=== PATIENT | male | born 1980 | race Two or more races ===

== ENCOUNTER 2017-10-05 15:15 | Emergency (ER) | payer MEDICARE, OTHER ==
[~2017-10-05] VITALS: Ht 157.5 cm; Wt 56.7 kg
[2017-10-05 15:24] VITALS: BP 109/70
== END 2017-10-05 17:09 | disposition home or self-care (01) ==
LOC: ER 15:17
DX: S01.112A Laceration without foreign body of left eyelid and periocular area, initial encounter (principal); F17.210 Nicotine dependence, cigarettes, uncomplicated; W01.0XXA Fall on same level from slipping, tripping and stumbling without subsequent striking against object, initial encounter; Y93.89 Activity, other specified; Y92.090 Kitchen in other non-institutional residence as the place of occurrence of the external cause; Y99.8 Other external cause status
CPT/HCPCS: 12011

== ENCOUNTER 2017-10-15 16:44 | Emergency (ER) | payer MEDICARE, OTHER ==
[~2017-10-15] VITALS: Ht 167.6 cm; Wt 53.5 kg
== END 2017-10-15 18:14 | disposition home or self-care (01) ==
LOC: ER 16:49
DX: S01.112D Laceration without foreign body of left eyelid and periocular area, subsequent encounter (principal); X58.XXXD Exposure to other specified factors, subsequent encounter; Z48.02 Encounter for removal of sutures; Z87.891 Personal history of nicotine dependence

== ENCOUNTER 2017-11-07 16:16 | Emergency (ER) | payer MEDICARE, OTHER ==
[~2017-11-07] VITALS: Ht 157.5 cm; Wt 56.7 kg
[2017-11-07 16:24] VITALS: BP 122/74
[2017-11-08] MEDS ORDERED: DOPamine 1600MCG/ML D5W 250 ML IV ONE (13:10)
== END 2017-11-07 21:12 | disposition home or self-care (01) ==
LOC: ER 16:23
DX: M70.32 Other bursitis of elbow, left elbow (principal); Z87.891 Personal history of nicotine dependence

== ENCOUNTER 2019-05-07 09:10 | Inpatient (IN) | payer MEDICARE, OTHER ==
[~2019-05-07] VITALS: Ht 157.5 cm; Wt 60.6 kg
[2019-05-07] MEDS ORDERED: SODIUM CHLORIDE 0.9% 1,000 ML IV ONE ×2 (09:58)
[2019-05-07] MEDS ORDERED: PIPERACILLIN-TAZOB 3.375GM 100 ML IV ONE (10:00)
[2019-05-07] MEDS ORDERED: IOHEXOL 300 MG/ML 100ML BOTTLE IJ ONE (10:31)
[2019-05-07 10:38] LABS: Basophils # (auto) 0 uL; Basophils % (auto) 0.5 % (0.0-2.0); Eosinophils # (auto) 0.4 uL; Eosinophils % (auto) 3.7 % (0.0-7.0); Hematocrit 39.6 % (41.0-53.0); Hemoglobin 13.9 g/dL (13.5-17.5); Lymphocytes # (auto) 0.7 uL; Lymphocytes % (auto) 7.8 % (10.0-50.0); Mean Corpuscular Hgb Conc. 35.1 g/dL (32.0-36.0); Monocytes # (auto) 1.7 uL; Monocytes % (auto) 17.2 % (0.0-12.0); Neutrophils # (auto) 6.8 uL; Neutrophils % (auto) 70.8 % (37.0-80.0); Platelet Count (auto) 148 10^3/uL (140-450); Red Blood Cells 4.21 10^6/uL (4.5-5.90); Red Cell Distribution Width 12.7 % (11.8-14.3); White Blood Cell 9.6 10^3/uL (4.4-10.8)
[2019-05-07 10:58] LABS: Albumin 2.9 g/dL (3.4-5.0); Calcium 8.6 mg/dL (8.5-10.1); Potassium 3.7 mmol/L (3.5-5.1)
[2019-05-07 11:02] LABS: BUN/Creatinine Ratio 25.6; Bilirubin, Total 0.6 mg/dL (0.2-1.0); Total Protein 7.3 g/dL (6.4-8.2)
[2019-05-07 11:30] LABS: INR 0.95 (0.9-1.15); Partial Thromboplastin Time 27.4 sec (23.64-32.05)
[2019-05-07 12:11] LABS: Urine WBC None Seen /hpf (0 - 3)
[2019-05-07 12:44] LABS: Urine Bacteria NONE SEEN /hpf (None Seen); Urine Blood Negative /uL (Negative)
[2019-05-07 12:58] LABS: Urine Specific Gravity > 1.050 (1.001-1.035)
[2019-05-07] MEDS ORDERED: VANCOMYCIN PER PHARMACY 0 MG IV SCH ×2 (14:00→14:15)
[2019-05-07] MEDS ORDERED: VANCOMYCIN 1GM/250ML 250 ML IV ONE (14:00)
[2019-05-07] MEDS ORDERED: VANCOMYCIN 1GM/250ML 250 ML IV SCH (15:00)
[2019-05-07] MEDS: SODIUM CHLORIDE 0.9% 1,000 ML IV SCH (15:13)
[2019-05-07] MEDS ORDERED: KETOROLAC TROMETH 60MG/2ML VIAL IV PRN (15:15)
[2019-05-07] MEDS ORDERED: PROMETHAZINE HCL 25 MG/ML 1ML IV PRN (15:15)
[2019-05-07] MEDS ORDERED: KETOROLAC TROMETH 30 MG/ML 1ML VIAL IV PRN (15:15)
[2019-05-07] MEDS ORDERED: traMADol HCL 50 MG TAB PO PRN (15:15)
[2019-05-07] MEDS ORDERED: TEMAZEPAM 15 MG CAP PO PRN (15:15)
[2019-05-07] MEDS ORDERED: ACETAMINOPHEN 500 MG TAB PO PRN (15:15)
[2019-05-07] MEDS ORDERED: LACTULOSE 20Gm/30ML SOLN PO PRN (15:15)
[2019-05-07] MEDS: PIPERACILLIN-TAZOB 3.375GM 100 ML IV SCH ×2 (18:32→23:38)
[2019-05-07 19:35] VITALS: BP 123/97
[2019-05-07 19:40] VITALS: BP 99/64
[2019-05-07 22:00] VITALS: BP 99/64
[2019-05-07] MEDS: FAMOTIDINE 20 MG TAB PO SCH (22:36)
[2019-05-08] MEDS ORDERED: DONE10TA40 PO (01:56)
[2019-05-08] MEDS ORDERED: RISP4TAB53 PO ×2 (01:56)
[2019-05-08] MEDS ORDERED: DEUT12TA PO (01:56)
[2019-05-08] MEDS ORDERED: CHOL20007 PO (01:56)
[2019-05-08] MEDS ORDERED: TRAZ50TA2 PO (01:56)
[2019-05-08] MEDS ORDERED: TEMA15CA91 PO (01:56)
[2019-05-08] MEDS ORDERED: HYDRX10T PO (01:56)
[2019-05-08] MEDS ORDERED: LEVO50TA7 PO (01:56)
[2019-05-08] MEDS ORDERED: LEVE100012 PO (01:56)
[2019-05-08] MEDS ORDERED: TRIH5TAB2 PO (01:56)
[2019-05-08] MEDS ORDERED: IBUP800T24 PO (01:56)
[2019-05-08] MEDS ORDERED: QUET400T12 PO (01:56)
[2019-05-08] MEDS ORDERED: MILK175T PO (01:56)
[2019-05-08] MEDS ORDERED: RANI-226 PO (01:56)
[2019-05-08] MEDS: SODIUM CHLORIDE 0.9% 1,000 ML IV SCH ×3 (04:06→21:01)
[2019-05-08] MEDS: VANCOMYCIN 750 MG in D5W 5% 250 ML IV SCH ×2 (04:06→16:13)
[2019-05-08 05:56] VITALS: BP 97/48
[2019-05-08] MEDS: PIPERACILLIN-TAZOB 3.375GM 100 ML IV SCH (06:26)
[2019-05-08 08:56] VITALS: BP 104/56
[2019-05-08] MEDS: FAMOTIDINE 20 MG TAB PO SCH ×2 (10:34→23:27)
[2019-05-08 10:47] LABS: Basophils # (auto) 0.1 uL; Basophils % (auto) 0.7 % (0.0-2.0); Eosinophils # (auto) 0.5 uL; Eosinophils % (auto) 5.8 % (0.0-7.0); Hemoglobin 13.8 g/dL (13.5-17.5); Lymphocytes # (auto) 1.2 uL; Lymphocytes % (auto) 13.5 % (10.0-50.0); Mean Corpuscular Hemoglobin 32.6 pg (28.0-32.0); Mean Corpuscular Hgb Conc. 34.5 g/dL (32.0-36.0); Mean Corpuscular Volume 94.5 fL (80.0-100.0); Monocytes # (auto) 1.4 uL; Monocytes % (auto) 15.3 % (0.0-12.0); Neutrophils # (auto) 5.8 uL; Neutrophils % (auto) 64.7 % (37.0-80.0); Nucleated Red Blood Cells % 0.2 %; Platelet Count (auto) 186 10^3/uL (140-450); Red Blood Cells 4.23 10^6/uL (4.5-5.90); Red Cell Distribution Width 12.5 % (11.8-14.3)
[2019-05-08 11:01] LABS: Albumin 2.9 g/dL (3.4-5.0); BUN/Creatinine Ratio 15.7; Calcium 8.6 mg/dL (8.5-10.1); Potassium 4.7 mmol/L (3.5-5.1)
[2019-05-08 11:03] LABS: Bilirubin, Total 0.6 mg/dL (0.2-1.0); Total Protein 7.2 g/dL (6.4-8.2)
[2019-05-08 13:00] VITALS: BP 104/73
[2019-05-08 16:41] VITALS: BP 115/54
[2019-05-08 21:34] VITALS: BP 103/65
[2019-05-08] MEDS: TRIHEXYPHENIDYL 5 MG PO SCH (22:00)
[2019-05-08] MEDS: QUEtiapine FUMARATE 100 MG TAB PO SCH (23:25)
[2019-05-08] MEDS: risperiDONE 1 MG TAB PO SCH (23:26)
[2019-05-08] MEDS: DONEPEZIL HYDROCHLORIDE 5 MG TAB PO SCH (23:27)
[2019-05-08] MEDS: LEVETIRACETAM 500 MG TAB PO SCH (23:27)
[2019-05-09 03:37] VITALS: BP 126/68
[2019-05-09] MEDS: VANCOMYCIN 750 MG in D5W 5% 250 ML IV SCH (04:42)
[2019-05-09] MEDS: SODIUM CHLORIDE 0.9% 1,000 ML IV SCH ×2 (07:01→09:59)
[2019-05-09] MEDS: LEVOTHYROXINE SODIUM 50 MCG TAB PO SCH (07:20)
[2019-05-09 09:00] VITALS: BP 106/70
[2019-05-09] MEDS: LEVETIRACETAM 500 MG TAB PO SCH ×2 (09:41→22:22)
[2019-05-09] MEDS: cefTRIAXone 1GM/50ML D5W 50 ML IV SCH (09:41)
[2019-05-09] MEDS: FAMOTIDINE 20 MG TAB PO SCH ×2 (09:42→22:22)
[2019-05-09] MEDS: risperiDONE 1 MG TAB PO SCH ×2 (09:42→22:22)
[2019-05-09] MEDS: QUEtiapine FUMARATE 100 MG TAB PO SCH ×2 (09:42→22:22)
[2019-05-09] MEDS: TRIHEXYPHENIDYL 5 MG PO SCH ×2 (09:42→22:00)
[2019-05-09 10:29] LABS: Basophils # (auto) 0.1 uL; Basophils % (auto) 1.1 % (0.0-2.0); Eosinophils # (auto) 0.6 uL; Eosinophils % (auto) 9.2 % (0.0-7.0); Hematocrit 38.5 % (41.0-53.0); Hemoglobin 13.6 g/dL (13.5-17.5); Lymphocytes # (auto) 1.2 uL; Lymphocytes % (auto) 18.4 % (10.0-50.0); Mean Corpuscular Hemoglobin 33.1 pg (28.0-32.0); Mean Corpuscular Hgb Conc. 35.5 g/dL (32.0-36.0); Mean Corpuscular Volume 93.2 fL (80.0-100.0); Monocytes # (auto) 0.9 uL; Monocytes % (auto) 13.2 % (0.0-12.0); Neutrophils # (auto) 3.8 uL; Neutrophils % (auto) 58.1 % (37.0-80.0); Nucleated Red Blood Cells % 0.1 %; Platelet Count (auto) 205 10^3/uL (140-450); Red Blood Cells 4.13 10^6/uL (4.5-5.90); Red Cell Distribution Width 12.5 % (11.8-14.3); White Blood Cell 6.6 10^3/uL (4.4-10.8)
[2019-05-09 10:47] LABS: Albumin 2.8 g/dL (3.4-5.0); BUN/Creatinine Ratio 19.7; Calcium 8.5 mg/dL (8.5-10.1); Potassium 3.9 mmol/L (3.5-5.1)
[2019-05-09 10:50] LABS: Bilirubin, Total 0.4 mg/dL (0.2-1.0); Total Protein 7.1 g/dL (6.4-8.2)
[2019-05-09 13:00] VITALS: BP 114/44
[2019-05-09] MEDS: VANCOMYCIN 1GM/250ML 250 ML IV SCH ×2 (14:26→22:03)
[2019-05-09 17:00] VITALS: BP 107/55
[2019-05-09 22:00] VITALS: BP 147/66
[2019-05-09] MEDS: ASCORBIC ACID 500 MG TAB PO SCH (22:22)
[2019-05-09] MEDS: DONEPEZIL HYDROCHLORIDE 5 MG TAB PO SCH (22:22)
[2019-05-10] MEDS: SODIUM CHLORIDE 0.9% 1,000 ML IV SCH ×2 (03:01→14:29)
[2019-05-10 04:50] VITALS: BP 101/55
[2019-05-10] MEDS: VANCOMYCIN 1GM/250ML 250 ML IV SCH ×2 (06:05→14:49)
[2019-05-10] MEDS: LEVOTHYROXINE SODIUM 50 MCG TAB PO SCH (06:25)
[2019-05-10 08:00] VITALS: BP 102/60
[2019-05-10] MEDS: cefTRIAXone 1GM/50ML D5W 50 ML IV SCH (08:51)
[2019-05-10 09:28] LABS: Basophils # (auto) 0.1 uL; Basophils % (auto) 0.6 % (0.0-2.0); Eosinophils # (auto) 0.5 uL; Eosinophils % (auto) 5.4 % (0.0-7.0); Hematocrit 39.8 % (41.0-53.0); Hemoglobin 13.7 g/dL (13.5-17.5); Lymphocytes # (auto) 1.1 uL; Lymphocytes % (auto) 11.4 % (10.0-50.0); Mean Corpuscular Hemoglobin 32.6 pg (28.0-32.0); Mean Corpuscular Hgb Conc. 34.5 g/dL (32.0-36.0); Mean Corpuscular Volume 94.5 fL (80.0-100.0); Monocytes # (auto) 0.7 uL; Monocytes % (auto) 6.9 % (0.0-12.0); Neutrophils # (auto) 7.2 uL; Neutrophils % (auto) 75.7 % (37.0-80.0); Platelet Count (auto) 226 10^3/uL (140-450); Red Blood Cells 4.21 10^6/uL (4.5-5.90); Red Cell Distribution Width 12.7 % (11.8-14.3); White Blood Cell 9.5 10^3/uL (4.4-10.8)
[2019-05-10] MEDS: TRIHEXYPHENIDYL 5 MG PO SCH ×2 (10:00→22:00)
[2019-05-10 10:15] LABS: BUN/Creatinine Ratio 19.4; Calcium 8.5 mg/dL (8.5-10.1); Potassium 3.7 mmol/L (3.5-5.1)
[2019-05-10] MEDS: risperiDONE 1 MG TAB PO SCH ×2 (10:38→21:22)
[2019-05-10] MEDS: FAMOTIDINE 20 MG TAB PO SCH ×2 (10:38→21:22)
[2019-05-10] MEDS: ASCORBIC ACID 500 MG TAB PO SCH ×2 (10:38→21:22)
[2019-05-10] MEDS: LEVETIRACETAM 500 MG TAB PO SCH ×2 (10:38→21:22)
[2019-05-10] MEDS: QUEtiapine FUMARATE 100 MG TAB PO SCH ×2 (10:38→21:23)
[2019-05-10 11:33] VITALS: BP 104/64
[2019-05-10 14:00] VITALS: BP 112/53
[2019-05-10] MEDS: DONEPEZIL HYDROCHLORIDE 5 MG TAB PO SCH (21:22)
[2019-05-10 22:00] VITALS: BP 114/76
[2019-05-11] MEDS ORDERED: VANCOMYCIN 1GM/250ML 250 ML IV SCH (01:00)
[2019-05-11] MEDS: SODIUM CHLORIDE 0.9% 1,000 ML IV SCH (01:22)
[2019-05-11 05:00] VITALS: BP 108/62
[2019-05-11] MEDS: LEVOTHYROXINE SODIUM 50 MCG TAB PO SCH (06:43)
[2019-05-11 08:00] VITALS: BP 105/56
[2019-05-11] MEDS: cefTRIAXone 1GM/50ML D5W 50 ML IV SCH (09:30)
[2019-05-11] MEDS: ASCORBIC ACID 500 MG TAB PO SCH ×2 (09:32→21:59)
[2019-05-11] MEDS: risperiDONE 1 MG TAB PO SCH ×2 (09:32→21:59)
[2019-05-11] MEDS: LEVETIRACETAM 500 MG TAB PO SCH ×2 (09:32→21:59)
[2019-05-11] MEDS: TRIHEXYPHENIDYL 5 MG PO SCH ×2 (09:32→22:00)
[2019-05-11] MEDS: FAMOTIDINE 20 MG TAB PO SCH ×2 (09:33→21:59)
[2019-05-11] MEDS: QUEtiapine FUMARATE 100 MG TAB PO SCH ×2 (09:33→21:59)
[2019-05-11] MEDS ORDERED: SULFAMETHOX W/TRIMETH(800/160MG) DS TAB PO ONE (11:30)
[2019-05-11 13:00] VITALS: BP 97/55
[2019-05-11 14:07] VITALS: BP 105/56
[2019-05-11 17:00] VITALS: BP 107/74
[2019-05-11 21:00] VITALS: BP 112/59
[2019-05-11] MEDS: DONEPEZIL HYDROCHLORIDE 5 MG TAB PO SCH (21:58)
[2019-05-11] MEDS: SULFAMETHOX W/TRIMETH(800/160MG) DS TAB PO SCH (21:59)
[2019-05-12] MEDS: LEVOTHYROXINE SODIUM 50 MCG TAB PO SCH (06:17)
[2019-05-12 06:29] VITALS: BP 104/51
[2019-05-12] MEDS: cefTRIAXone 1GM/50ML D5W 50 ML IV SCH (08:57)
[2019-05-12 09:00] VITALS: BP 91/47
[2019-05-12] MEDS: TRIHEXYPHENIDYL 5 MG PO SCH (10:00)
[2019-05-12] MEDS: FAMOTIDINE 20 MG TAB PO SCH (11:02)
[2019-05-12] MEDS: ASCORBIC ACID 500 MG TAB PO SCH (11:02)
[2019-05-12] MEDS: SULFAMETHOX W/TRIMETH(800/160MG) DS TAB PO SCH (11:02)
[2019-05-12] MEDS: QUEtiapine FUMARATE 100 MG TAB PO SCH (11:02)
[2019-05-12] MEDS: LEVETIRACETAM 500 MG TAB PO SCH (11:03)
[2019-05-12] MEDS: risperiDONE 1 MG TAB PO SCH (11:03)
[2019-05-12 13:00] VITALS: BP 104/63
[2019-05-12 17:56] VITALS: BP 106/60
== END 2019-05-12 20:25 | disposition home health service (06) | DRG 872 ==
LOC: ER 09:10 → OVERFLOW 13:25 → CENTRAL 19:30
PROVIDERS: ADMIT Internal Medicine; ATTEND Internal Medicine
DX: A41.9 Sepsis, unspecified organism (principal); L03.313 Cellulitis of chest wall; G10 Huntington's disease; L02.31 Cutaneous abscess of buttock; L72.3 Sebaceous cyst; F20.9 Schizophrenia, unspecified; E03.9 Hypothyroidism, unspecified; B95.62 Methicillin resistant Staphylococcus aureus infection as the cause of diseases classified elsewhere
CPT/HCPCS: 36415; 71045; 71260; 80048; 80053; 80202; 81001; 83605; 84443; 85025; 85610; 85730; 87040; 87077; 87081; 87186; 87205; 96365; 96366; 96368; A4565; G0378; J0696; J2543; J7060

== ENCOUNTER 2019-08-17 16:49 | Emergency (ER) | payer MEDICARE, OTHER ==
[~2019-08-17] VITALS: Ht 177.8 cm; Wt 72.6 kg
[~2019-08-17 16:49] MED LIST: CHOL20007 PO; DEUT12TA PO; DONE10TA40 PO; HYDRX10T PO; IBUP800T24 PO; LEVE100012 PO; LEVO50TA7 PO; MILK175T PO; QUET400T12 PO; RANI-226 PO; RISP4TAB53 PO; TEMA15CA91 PO; TRAZ50TA2 PO; TRIH5TAB3 PO
[2019-08-17 17:06] VITALS: BP 117/78
[2019-08-17] MEDS ORDERED: ACETAMINOPHEN 325 MG TAB PO ONE (17:15)
[2019-08-17 17:34] LABS: Basophils # (auto) 0 uL; Basophils % (auto) 0.4 % (0.0-2.0); Eosinophils # (auto) 0.2 uL; Eosinophils % (auto) 1.9 % (0.0-7.0); Hemoglobin 15.1 g/dL (13.5-17.5); Lymphocytes # (auto) 1.3 uL; Lymphocytes % (auto) 15.5 % (10.0-50.0); Mean Corpuscular Hemoglobin 33.2 pg (28.0-32.0); Mean Corpuscular Hgb Conc. 34.3 g/dL (32.0-36.0); Mean Corpuscular Volume 96.8 fL (80.0-100.0); Monocytes # (auto) 1.1 uL; Monocytes % (auto) 13.9 % (0.0-12.0); Neutrophils # (auto) 5.6 uL; Neutrophils % (auto) 68.3 % (37.0-80.0); Nucleated Red Blood Cells % 0.1 %; Platelet Count (auto) 149 10^3/uL (140-450); Red Blood Cells 4.55 10^6/uL (4.5-5.90); Red Cell Distribution Width 13.1 % (11.8-14.3); White Blood Cell 8.3 10^3/uL (4.4-10.8)
[2019-08-17 17:50] LABS: Alanine Aminotransferase 66 U/L (16-61); Albumin 3.7 g/dL (3.4-5.0); Anion Gap 2 (5-15); Aspartate Aminotransferase 28 U/L (15-37); BUN/Creatinine Ratio 22.3; Blood Urea Nitrogen 25 mg/dL (7-18); Calcium 8.5 mg/dL (8.5-10.1); Carbon Dioxide 30 mmol/L (21-32); Chloride 107 mmol/L (98-107); GFR African American 95 mL/min; GFR Non-African American 78 mL/min; Glucose 105 mg/dL (74-106); Sodium 139 mmol/L (136-145)
[2019-08-17 17:52] LABS: Alkaline Phosphatase 87 U/L (45-117); Bilirubin, Total 0.4 mg/dL (0.2-1.0); Total Protein 7.8 g/dL (6.4-8.2)
== END 2019-08-17 20:55 | disposition left against medical advice (07) ==
LOC: ER 17:02 → MERGE 17:02 → ER 20:55
DX: M25.562 Pain in left knee (principal); Z53.21 Procedure and treatment not carried out due to patient leaving prior to being seen by health care provider
CPT/HCPCS: 36415; 73562; 80053; 85025

== ENCOUNTER 2020-01-19 19:18 | Emergency (ER) | payer MEDICARE, OTHER ==
[~2020-01-19] VITALS: Ht 170.2 cm; Wt 63.5 kg
[2020-01-19] MEDS ORDERED: LIDOCAINE W/ EPINEPHRINE 1% 20ML VIAL ID ONE (21:00)
[2020-01-19] MEDS ORDERED: LORazepam 2MG/ML-1ML VIAL IV ONE ×2 (21:15)
[2020-01-19 23:46] VITALS: BP 118/67
== END 2020-01-19 23:47 | disposition home or self-care (01) ==
LOC: ER 19:18 → EDBD 19:18 → ER 23:47
DX: S01.01XA Laceration without foreign body of scalp, initial encounter (principal); S06.0X0A Concussion without loss of consciousness, initial encounter; G10 Huntington's disease; Z79.899 Other long term (current) drug therapy; W18.31XA Fall on same level due to stepping on an object, initial encounter; Y93.89 Activity, other specified; Y92.89 Other specified places as the place of occurrence of the external cause; Y99.8 Other external cause status
CPT/HCPCS: 12002; 70450; 72125; 96374; 99285; J2060

== ENCOUNTER 2020-01-20 01:06 | Emergency (ER) | payer MEDICARE, OTHER ==
[~2020-01-20] VITALS: Ht 157.5 cm; Wt 68.0 kg
[2020-01-20 03:25] VITALS: BP 135/75
== END 2020-01-20 03:36 | disposition home or self-care (01) ==
LOC: ER 01:06
DX: S01.01XA Laceration without foreign body of scalp, initial encounter (principal); Z79.899 Other long term (current) drug therapy; W18.09XA Striking against other object with subsequent fall, initial encounter; Y93.89 Activity, other specified; Y92.098 Other place in other non-institutional residence as the place of occurrence of the external cause; Y99.8 Other external cause status
CPT/HCPCS: 12002; 70450

== ENCOUNTER 2020-03-18 08:41 | Emergency (ER) | payer MEDICARE, OTHER ==
[~2020-03-18] VITALS: Ht 157.5 cm; Wt 54.0 kg
[2020-03-18 08:53] VITALS: BP 110/56
== END 2020-03-18 09:45 | disposition home or self-care (01) ==
LOC: ER 08:41
DX: S01.112A Laceration without foreign body of left eyelid and periocular area, initial encounter (principal); W01.0XXA Fall on same level from slipping, tripping and stumbling without subsequent striking against object, initial encounter; Y93.01 Activity, walking, marching and hiking; Y92.89 Other specified places as the place of occurrence of the external cause; Y99.8 Other external cause status
CPT/HCPCS: 12011

== ENCOUNTER 2021-08-11 07:53 | Emergency (ER) | payer MEDICARE, OTHER ==
[~2021-08-11] VITALS: Ht 167.6 cm; Wt 59.0 kg
[~2021-08-11 07:53] MED LIST changes: -DONE10TA40 PO; +DONE1TAB88 PO; -IBUP800T24 PO; +IBUP800T27 PO; +TEMA15CA2 PO; -TEMA15CA91 PO
[2021-08-11 08:13] VITALS: BP 131/74
[2021-08-11] MEDS ORDERED: ACETAMINOPHEN 650 mg PER 20.3 mL UD PO ONE (08:45)
== END 2021-08-11 08:45 ==
LOC: EDBD 07:53 → ER 07:53 → EDUNIT# 07:53 → ER 08:45
DX: S01.01XA Laceration without foreign body of scalp, initial encounter (principal); S09.8XXA Other specified injuries of head, initial encounter; G10 Huntington's disease; Z86.19 Personal history of other infectious and parasitic diseases; W22.8XXA Striking against or struck by other objects, initial encounter; Y93.89 Activity, other specified; Y92.89 Other specified places as the place of occurrence of the external cause; Y99.8 Other external cause status
CPT/HCPCS: 12001

== ENCOUNTER 2021-11-15 22:49 | Emergency (ER) | payer MEDICARE, OTHER ==
[~2021-11-15] VITALS: Ht 165.1 cm; Wt 49.4 kg
[~2021-11-15 22:49] MED LIST changes: -QUET400T12 PO; +QUET400T13 PO
[2021-11-16 02:47] LABS: Basophils # (auto) 0 10 ^3/uL (0-0.2); Basophils % (auto) 0.5 % (0.0-2.0); Eosinophils # (auto) 0.3 10 ^3/uL (0-0.8); Eosinophils % (auto) 3.1 % (0.0-7.0); Hematocrit 42.7 % (41.0-53.0); Hemoglobin 14.7 g/dL (13.5-17.5); Lymphocytes # (auto) 1.3 10 ^3/uL (0.4-5.4); Lymphocytes % (auto) 15.8 % (10.0-50.0); Mean Corpuscular Hemoglobin 32.5 pg (28.0-32.0); Mean Corpuscular Hgb Conc. 34.3 g/dL (32.0-36.0); Mean Corpuscular Volume 94.9 fL (80.0-100.0); Monocytes % (auto) 12.1 % (0.0-12.0); Neutrophils # (auto) 5.7 10 ^3/uL (1.6-8.6); Neutrophils % (auto) 68.5 % (37.0-80.0); Nucleated Red Blood Cells % 0.1 %; Red Cell Distribution Width 12.6 % (11.8-14.3); White Blood Cell 8.3 10^3/uL (4.4-10.8)
[2021-11-16 03:06] LABS: Albumin 3.5 g/dL (3.4-5.0); BUN/Creatinine Ratio 26.6; Calcium 8.7 mg/dL (8.5-10.1); Potassium 3.9 mmol/L (3.5-5.1)
[2021-11-16 03:07] LABS: Bilirubin, Total 0.5 mg/dL (0.2-1.0); Total Protein 7.1 g/dL (6.4-8.2)
[2021-11-16] MEDS ORDERED: cefTRIAXone 1GM/50ML D5W 50 ML IV ONE (09:15)
[2021-11-16 10:03] VITALS: BP 110/65
== END 2021-11-16 10:09 | disposition home or self-care (01) ==
LOC: ER 22:49
DX: J18.9 Pneumonia, unspecified organism (principal); G10 Huntington's disease; Z20.822 Contact with and (suspected) exposure to COVID-19
CPT/HCPCS: 36415; 71045; 80053; 85025; 87426; 96365

== ENCOUNTER 2021-12-20 20:47 | Inpatient (IN) | payer MEDICARE, OTHER ==
[~2021-12-20] VITALS: Ht 160 cm; Wt 40.6 kg
[2021-12-20] MEDS ORDERED: IOHEXOL 350 MG/ML 100ML IJ ONE (22:04)
[2021-12-20 22:11] LABS: Basophils # (auto) 0 10 ^3/uL (0-0.2); Basophils % (auto) 0.4 % (0.0-2.0); Eosinophils # (auto) 0 10 ^3/uL (0-0.8); Eosinophils % (auto) 0.2 % (0.0-7.0); Hematocrit 45.1 % (41.0-53.0); Hemoglobin 15.5 g/dL (13.5-17.5); Lymphocytes # (auto) 1.4 10 ^3/uL (0.4-5.4); Lymphocytes % (auto) 16.5 % (10.0-50.0); Mean Corpuscular Hemoglobin 32.2 pg (28.0-32.0); Mean Corpuscular Hgb Conc. 34.5 g/dL (32.0-36.0); Mean Corpuscular Volume 93.4 fL (80.0-100.0); Monocytes # (auto) 0.6 10 ^3/uL (0-1.3); Monocytes % (auto) 6.6 % (0.0-12.0); Neutrophils # (auto) 6.6 10 ^3/uL (1.6-8.6); Neutrophils % (auto) 76.3 % (37.0-80.0); Nucleated Red Blood Cells % 0.2 %; Red Blood Cells 4.83 10^6/uL (4.5-5.90); Red Cell Distribution Width 12.8 % (11.8-14.3); White Blood Cell 8.6 10^3/uL (4.4-10.8)
[2021-12-20 22:24] LABS: Albumin 3.5 g/dL (3.4-5.0); Calcium 8.8 mg/dL (8.5-10.1); Magnesium 3.3 mg/dL (1.6-2.6); Potassium 3.7 mmol/L (3.5-5.1)
[2021-12-20 22:25] LABS: INR 1.02 (0.9-1.15); Partial Thromboplastin Time 23.5 sec (23.6-33.0)
[2021-12-20 22:54] LABS: BUN/Creatinine Ratio 26.4; Bilirubin, Total 0.2 mg/dL (0.2-1.0); Total Protein 7.2 g/dL (6.4-8.2)
[2021-12-21] MEDS ORDERED: SODIUM CHLORIDE 0.9% 1,000 ML IV ONE (00:15)
[2021-12-21] MEDS ORDERED: AZITHROMYCIN 500MG/ 250ML 250 ML IV ONE (00:15)
[2021-12-21] MEDS ORDERED: cefTRIAXone 1GM/50ML D5W 50 ML IV ONE (00:15)
[2021-12-21] MEDS ORDERED: ONDANSETRON HCL 4 MG/2 ML VIAL IV PRN (04:00)
[2021-12-21] MEDS ORDERED: ACETAMINOPHEN 325 MG TAB PO PRN (04:00)
[2021-12-21] MEDS ORDERED: MORPHINE SULFATE INJECTION 2 MG/ML SYRG IV PRN (04:00)
[2021-12-21] MEDS ORDERED: NITROGLYCERIN 0.4 MG SL TAB SL PRN (04:00)
[2021-12-21] MEDS ORDERED: TEMAZEPAM 15 MG CAP PO PRN (04:00)
[2021-12-21] MEDS: ALBUTEROL SULF 2.5 MG/0.5ML(0.5%) NEB SOLN NEB SCH ×3 (06:00→18:15)
[2021-12-21] MEDS: LEVOTHYROXINE SODIUM 50 MCG TAB PO SCH (07:10)
[2021-12-21] MEDS: cefTRIAXone 1GM/50ML D5W 50 ML IV SCH (09:35)
[2021-12-21] MEDS ORDERED: DexAMETHasone SOD PHOS 10MG/1ML VIAL INJ IV SCH (10:00)
[2021-12-21] MEDS ORDERED: levETIRAcetam 500 MG TAB PO SCH (10:00)
[2021-12-21] MEDS: ZINC SULFATE 220mg CAP or TAB PO SCH (10:51)
[2021-12-21] MEDS: risperiDONE 1 MG TAB PO SCH (10:51)
[2021-12-21] MEDS: MULTIPLE VITAMIN TAB PO SCH (10:51)
[2021-12-21] MEDS: ASCORBIC ACID 500 MG TAB PO SCH (10:52)
[2021-12-21] MEDS: ENOXAPARIN SOD 40 MG/0.4 ML SYRINGE SC SCH (10:52)
[2021-12-21] MEDS: AZITHROMYCIN 500MG/ 250ML 250 ML IV SCH (11:32)
[2021-12-21 12:32] LABS: Urine Bacteria NONE SEEN /hpf (None Seen); Urine Blood Negative /uL (Negative); Urine Specific Gravity 1.033 (1.001-1.035); Urine WBC 6 /hpf (0 - 3)
[2021-12-21 22:00] VITALS: BP 132/64
[2021-12-22] MEDS: ASCORBIC ACID 500 MG TAB PO SCH ×3 (00:34→22:00)
[2021-12-22] MEDS: traZODone HCL 50 MG TAB PO SCH ×2 (00:34→22:00)
[2021-12-22 05:00] VITALS: BP 126/78
[2021-12-22] MEDS: LEVOTHYROXINE SODIUM 50 MCG TAB PO SCH (05:57)
[2021-12-22 06:02] LABS: Basophils # (auto) 0 10 ^3/uL (0-0.2); Basophils % (auto) 0.1 % (0.0-2.0); Eosinophils # (auto) 0.6 10 ^3/uL (0-0.8); Eosinophils % (auto) 5.6 % (0.0-7.0); Hematocrit 43.1 % (41.0-53.0); Hemoglobin 15.1 g/dL (13.5-17.5); Lymphocytes # (auto) 1.5 10 ^3/uL (0.4-5.4); Lymphocytes % (auto) 14.7 % (10.0-50.0); Mean Corpuscular Hemoglobin 32.3 pg (28.0-32.0); Mean Corpuscular Hgb Conc. 34.9 g/dL (32.0-36.0); Mean Corpuscular Volume 92.5 fL (80.0-100.0); Monocytes # (auto) 0.9 10 ^3/uL (0-1.3); Neutrophils # (auto) 7.1 10 ^3/uL (1.6-8.6); Neutrophils % (auto) 70.6 % (37.0-80.0); Red Blood Cells 4.66 10^6/uL (4.5-5.90); Red Cell Distribution Width 13.1 % (11.8-14.3); White Blood Cell 10.1 10^3/uL (4.4-10.8)
[2021-12-22] MEDS: ALBUTEROL SULF 2.5 MG/0.5ML(0.5%) NEB SOLN NEB SCH ×3 (06:03→18:12)
[2021-12-22 06:38] LABS: Potassium 3.8 mmol/L (3.5-5.1)
[2021-12-22 06:48] LABS: Albumin 3.2 g/dL (3.4-5.0); BUN/Creatinine Ratio 27.2; Bilirubin, Total 0.8 mg/dL (0.2-1.0); Calcium 8.8 mg/dL (8.5-10.1); Total Protein 6.7 g/dL (6.4-8.2)
[2021-12-22 08:00] VITALS: BP 107/69
[2021-12-22 09:00] VITALS: BP 107/69
[2021-12-22] MEDS: cefTRIAXone 1GM/50ML D5W 50 ML IV SCH (10:01)
[2021-12-22] MEDS: MULTIPLE VITAMIN TAB PO SCH (10:02)
[2021-12-22] MEDS: ZINC SULFATE 220mg CAP or TAB PO SCH (10:02)
[2021-12-22] MEDS: risperiDONE 1 MG TAB PO SCH (10:02)
[2021-12-22] MEDS: AZITHROMYCIN 500MG/ 250ML 250 ML IV SCH (10:02)
[2021-12-22] MEDS: ENOXAPARIN SOD 40 MG/0.4 ML SYRINGE SC SCH (10:03)
[2021-12-22] MEDS ORDERED: FUROSEMIDE 20 MG/2 ML VIAL IV ONE (10:15)
[2021-12-22] MEDS ORDERED: levoFLOXacin 500MG 100 ML IV ONE (10:15)
[2021-12-22 13:00] VITALS: BP 113/64
[2021-12-22 17:00] VITALS: BP 117/73
[2021-12-22 20:30] VITALS: BP 107/69
[2021-12-23] MEDS: LEVOTHYROXINE SODIUM 50 MCG TAB PO SCH (06:38)
[2021-12-23] MEDS: IPRATROPIUM BROM 0.5 MG/2.5ML INH SOL NEB PRN ×3 (06:56→19:03)
[2021-12-23] MEDS: ALBUTEROL SULF 2.5 MG/0.5ML(0.5%) NEB SOLN NEB SCH ×3 (06:56→19:02)
[2021-12-23 07:30] VITALS: BP 113/64
[2021-12-23 07:36] LABS: Albumin 3.4 g/dL (3.4-5.0)
[2021-12-23 07:41] LABS: Bilirubin, Direct 0.2 mg/dL (0-0.2); Bilirubin, Total 0.9 mg/dL (0.2-1.0); Total Protein 7.7 g/dL (6.4-8.2)
[2021-12-23 09:00] VITALS: BP 115/75
[2021-12-23] MEDS: MULTIPLE VITAMIN TAB PO SCH ×2 (10:00→10:31)
[2021-12-23] MEDS: ZINC SULFATE 220mg CAP or TAB PO SCH (10:00)
[2021-12-23] MEDS: ASCORBIC ACID 500 MG TAB PO SCH ×2 (10:00→22:42)
[2021-12-23] MEDS: risperiDONE 1 MG TAB PO SCH ×2 (10:00→10:31)
[2021-12-23] MEDS: FUROSEMIDE 20 MG/2 ML VIAL IV SCH (10:30)
[2021-12-23] MEDS: levoFLOXacin 500MG 100 ML IV SCH (10:30)
[2021-12-23] MEDS: ENOXAPARIN SOD 40 MG/0.4 ML SYRINGE SC SCH (10:31)
[2021-12-23 13:00] VITALS: BP 116/88
[2021-12-23] MEDS: D5W/SOD CHLO 0.9% 1,000 ML IV SCH ×2 (14:06→22:41)
[2021-12-23 17:00] VITALS: BP 119/66
[2021-12-23 21:04] VITALS: BP 94/49
[2021-12-23 22:00] VITALS: BP 94/49
[2021-12-23] MEDS: traZODone HCL 50 MG TAB PO SCH (22:41)
[2021-12-24 05:03] VITALS: BP 130/76
[2021-12-24] MEDS: D5W/SOD CHLO 0.9% 1,000 ML IV SCH (06:13)
[2021-12-24] MEDS: LEVOTHYROXINE SODIUM 50 MCG TAB PO SCH ×2 (06:13→10:46)
[2021-12-24 06:18] LABS: Bilirubin, Direct 0.2 mg/dL (0-0.2)
[2021-12-24 06:20] LABS: Bilirubin, Total 0.5 mg/dL (0.2-1.0); Total Protein 6.7 g/dL (6.4-8.2)
[2021-12-24] MEDS: ALBUTEROL SULF 2.5 MG/0.5ML(0.5%) NEB SOLN NEB SCH ×2 (06:28→22:41)
[2021-12-24] MEDS: IPRATROPIUM BROM 0.5 MG/2.5ML INH SOL NEB PRN (06:28)
[2021-12-24 08:00] VITALS: BP 136/70
[2021-12-24 09:23] VITALS: BP 126/70
[2021-12-24] MEDS: ZINC SULFATE 220mg CAP or TAB PO SCH (10:00)
[2021-12-24] MEDS: ASCORBIC ACID 500 MG TAB PO SCH ×2 (10:46→22:30)
[2021-12-24] MEDS: risperiDONE 1 MG TAB PO SCH (10:47)
[2021-12-24] MEDS: MULTIPLE VITAMIN TAB PO SCH (10:47)
[2021-12-24] MEDS: ENOXAPARIN SOD 40 MG/0.4 ML SYRINGE SC SCH (10:48)
[2021-12-24] MEDS: FUROSEMIDE 20 MG/2 ML VIAL IV SCH (10:48)
[2021-12-24] MEDS: levoFLOXacin 500MG 100 ML IV SCH (10:49)
[2021-12-24 20:56] VITALS: BP 129/82
[2021-12-24] MEDS: traZODone HCL 50 MG TAB PO SCH (22:30)
[2021-12-25] MEDS: D5W/SOD CHLO 0.9% 1,000 ML IV SCH (03:09)
[2021-12-25 05:21] VITALS: BP 141/70
[2021-12-25] MEDS: ALBUTEROL SULF 2.5 MG/0.5ML(0.5%) NEB SOLN NEB SCH ×3 (05:49→18:40)
[2021-12-25] MEDS: IPRATROPIUM BROM 0.5 MG/2.5ML INH SOL NEB PRN ×3 (05:49→18:40)
[2021-12-25 08:00] VITALS: BP 136/70
[2021-12-25 08:58] LABS: Basophils # (auto) 0 10 ^3/uL (0-0.2); Basophils % (auto) 0.4 % (0.0-2.0); Eosinophils # (auto) 0 10 ^3/uL (0-0.8); Eosinophils % (auto) 0.2 % (0.0-7.0); Hematocrit 41.7 % (41.0-53.0); Hemoglobin 14.2 g/dL (13.5-17.5); Lymphocytes # (auto) 0.6 10 ^3/uL (0.4-5.4); Lymphocytes % (auto) 8.6 % (10.0-50.0); Mean Corpuscular Hemoglobin 32.1 pg (28.0-32.0); Mean Corpuscular Volume 94.4 fL (80.0-100.0); Monocytes # (auto) 0.7 10 ^3/uL (0-1.3); Monocytes % (auto) 10.9 % (0.0-12.0); Neutrophils # (auto) 5.5 10 ^3/uL (1.6-8.6); Neutrophils % (auto) 79.9 % (37.0-80.0); Red Blood Cells 4.42 10^6/uL (4.5-5.90); Red Cell Distribution Width 12.8 % (11.8-14.3); White Blood Cell 6.8 10^3/uL (4.4-10.8)
[2021-12-25 09:00] VITALS: BP 136/70
[2021-12-25 09:13] LABS: Calcium 8.7 mg/dL (8.5-10.1); Magnesium 2.5 mg/dL (1.6-2.6); Potassium 3.5 mmol/L (3.5-5.1)
[2021-12-25 09:17] LABS: BUN/Creatinine Ratio 34.2; Bilirubin, Total 0.6 mg/dL (0.2-1.0); Total Protein 6.7 g/dL (6.4-8.2)
[2021-12-25] MEDS: ZINC SULFATE 220mg CAP or TAB PO SCH (10:00)
[2021-12-25] MEDS: MULTIPLE VITAMIN TAB PO SCH (10:00)
[2021-12-25] MEDS: ASCORBIC ACID 500 MG TAB PO SCH ×2 (10:00→22:00)
[2021-12-25] MEDS: D5W 5% 1,000 ML IV SCH (10:00)
[2021-12-25] MEDS: risperiDONE 1 MG TAB PO SCH (10:00)
[2021-12-25] MEDS: levoFLOXacin 500MG 100 ML IV SCH (10:27)
[2021-12-25] MEDS: ENOXAPARIN SOD 40 MG/0.4 ML SYRINGE SC SCH (10:28)
[2021-12-25 12:25] LABS: Hepatitis A Total Antibody Negative (Negative); Hepatitis B Surface Antibody Negative (Negative)
[2021-12-25 12:34] LABS: Hepatitis C Antibody Positive (Negative)
[2021-12-25 13:00] VITALS: BP 144/99
[2021-12-25 17:00] VITALS: BP 132/74
[2021-12-25 22:00] VITALS: BP 134/81
[2021-12-25] MEDS: traZODone HCL 50 MG TAB PO SCH (22:00)
[2021-12-26 04:00] VITALS: BP 127/76
[2021-12-26] MEDS: ACETAMINOPHEN 650 MG RECT SUPP PR PRN (04:45)
[2021-12-26] MEDS: ALBUTEROL SULF 2.5 MG/0.5ML(0.5%) NEB SOLN NEB SCH ×3 (05:47→19:03)
[2021-12-26] MEDS: IPRATROPIUM BROM 0.5 MG/2.5ML INH SOL NEB PRN ×2 (05:47→19:03)
[2021-12-26] MEDS: D5W 5% 1,000 ML IV SCH (05:55)
[2021-12-26] MEDS: LEVOTHYROXINE SODIUM 50 MCG TAB PO SCH (07:00)
[2021-12-26 07:44] LABS: BUN/Creatinine Ratio 42.5; Calcium 9.3 mg/dL (8.5-10.1)
[2021-12-26] MEDS: POTASSIUM CHL 10MEQ/50ML 50 ML IV SCH ×6 (08:30→13:30)
[2021-12-26] MEDS: levoFLOXacin 500MG 100 ML IV SCH (10:00)
[2021-12-26] MEDS: ENOXAPARIN SOD 40 MG/0.4 ML SYRINGE SC SCH (10:00)
[2021-12-26] MEDS: risperiDONE 1 MG TAB PO SCH (10:00)
[2021-12-26] MEDS: ASCORBIC ACID 500 MG TAB PO SCH ×2 (10:00→22:00)
[2021-12-26] MEDS: ZINC SULFATE 220mg CAP or TAB PO SCH (10:00)
[2021-12-26] MEDS: MULTIPLE VITAMIN TAB PO SCH (10:00)
[2021-12-26] MEDS ORDERED: POTASSIUM CHL 10MEQ/50ML 100 ML IV ONE (19:28)
[2021-12-26 22:00] VITALS: BP 125/88
[2021-12-26] MEDS: traZODone HCL 50 MG TAB PO SCH (22:00)
[2021-12-27] VITALS (25 sets, daily range): BP systolic 66–140; BP diastolic 53–85
[2021-12-27] MEDS: D5W 5% 1,000 ML IV SCH ×2 (02:10→12:20)
[2021-12-27] MEDS: ALBUTEROL SULF 2.5 MG/0.5ML(0.5%) NEB SOLN NEB SCH ×3 (06:00→18:07)
[2021-12-27] MEDS ORDERED: LORazepam 2MG/ML-1ML VIAL ONE (06:26)
[2021-12-27] MEDS ORDERED: ETOMIDATE (2MG/ML) 20ML VIAL IV ONE ×2 (06:32→06:45)
[2021-12-27] MEDS ORDERED: SUCCINYLCHOLINE CHLORIDE 20 MG/ML 10ML VIAL IV ONE ×2 (06:32→06:45)
[2021-12-27] MEDS ORDERED: MIDAZOLAM DRIP 50 mg/50mL 50 ML IV ONE ×2 (06:37→10:35)
[2021-12-27] MEDS ORDERED: fentaNYL Drip 2500mCg/250mlNS 250 ML IV ONE (06:41)
[2021-12-27] MEDS ORDERED: LORazepam 2MG/ML-1ML VIAL IV ONE (06:45)
[2021-12-27] MEDS: PROPOFOL 100 ML IV SCH (10:00)
[2021-12-27] MEDS: risperiDONE 1 MG TAB PO SCH (10:00)
[2021-12-27] MEDS: levoFLOXacin 500MG 100 ML IV SCH (10:03)
[2021-12-27] MEDS: LEVOTHYROXINE SODIUM 50 MCG TAB PO SCH (10:04)
[2021-12-27] MEDS: MULTIPLE VITAMIN TAB PO SCH (10:04)
[2021-12-27] MEDS: ENOXAPARIN SOD 40 MG/0.4 ML SYRINGE SC SCH (10:04)
[2021-12-27] MEDS: ASCORBIC ACID 500 MG TAB PO SCH ×3 (10:04→22:16)
[2021-12-27] MEDS: ZINC SULFATE 220mg CAP or TAB PO SCH (10:04)
[2021-12-27] MEDS: fentaNYL Drip 2500mCg/250mlNS 250 ML IV SCH (10:45)
[2021-12-27 11:42] LABS: Albumin 3.2 g/dL (3.4-5.0); Calcium 9.1 mg/dL (8.5-10.1); Magnesium 3.9 mg/dL (1.6-2.6)
[2021-12-27 11:44] LABS: BUN/Creatinine Ratio 38.7; Bilirubin, Total 1.4 mg/dL (0.2-1.0); Phosphorus 3.3 mg/dL (2.5-4.90)
[2021-12-27] MEDS: MIDAZOLAM DRIP 50 mg/50mL 50 ML IV SCH (12:19)
[2021-12-27] MEDS: IPRATROPIUM BROM 0.5 MG/2.5ML INH SOL NEB PRN ×2 (12:29→18:07)
[2021-12-27] MEDS: POTASSIUM CHL 10MEQ/50ML 50 ML IV SCH ×4 (14:42→17:54)
[2021-12-27] MEDS ORDERED: ALBUMIN 25% 100 ML IV ONE ×2 (18:30→18:43)
[2021-12-27] MEDS: D5W/SOD CHLO 0.9% 1,000 ML IV SCH (19:00)
[2021-12-27] MEDS: traZODone HCL 50 MG TAB PO SCH ×2 (21:01→22:16)
[2021-12-28] VITALS (26 sets, daily range): BP systolic 78–131; BP diastolic 37–82
[2021-12-28] MEDS: LEVOTHYROXINE SODIUM 50 MCG TAB PO SCH (06:12)
[2021-12-28] MEDS: D5W/SOD CHLO 0.9% 1,000 ML IV SCH ×2 (06:13→21:47)
[2021-12-28] MEDS: PROPOFOL 100 ML IV SCH (07:00)
[2021-12-28] MEDS: MIDAZOLAM DRIP 50 mg/50mL 50 ML IV SCH ×2 (09:11→18:00)
[2021-12-28] MEDS: levoFLOXacin 500MG 100 ML IV SCH (09:13)
[2021-12-28] MEDS: risperiDONE 1 MG TAB PO SCH (09:13)
[2021-12-28] MEDS: PANTOPRAZOLE 40 MG/10 ML VIAL INJ IV SCH (09:14)
[2021-12-28] MEDS: ZINC SULFATE 220mg CAP or TAB PO SCH (09:14)
[2021-12-28] MEDS: ASCORBIC ACID 500 MG TAB PO SCH (09:14)
[2021-12-28] MEDS: MULTIPLE VITAMIN TAB PO SCH (09:15)
[2021-12-28] MEDS: ENOXAPARIN SOD 40 MG/0.4 ML SYRINGE SC SCH (09:15)
[2021-12-28] MEDS ORDERED: POTASSIUM EFFERVESENT TAB 25 MEQ GT ONE (10:00)
[2021-12-28] MEDS: ALBUTEROL SULF 2.5 MG/0.5ML(0.5%) NEB SOLN NEB SCH ×3 (11:22→18:55)
[2021-12-28] MEDS: IPRATROPIUM BROM 0.5 MG/2.5ML INH SOL NEB PRN ×2 (11:22→18:55)
[2021-12-28] MEDS: fentaNYL Drip 2500mCg/250mlNS 250 ML IV SCH (13:18)
[2021-12-28] MEDS: traZODone HCL 50 MG TAB PO SCH (21:46)
[2021-12-29] VITALS (43 sets, daily range): BP systolic 89–144; BP diastolic 47–88
[2021-12-29 04:56] LABS: BUN/Creatinine Ratio 30.8; Calcium 8.4 mg/dL (8.5-10.1); Potassium 3.1 mmol/L (3.5-5.1)
[2021-12-29] MEDS: MIDAZOLAM DRIP 50 mg/50mL 50 ML IV SCH ×2 (06:25→14:32)
[2021-12-29] MEDS: LEVOTHYROXINE SODIUM 50 MCG TAB PO SCH ×2 (06:30→09:05)
[2021-12-29] MEDS: ALBUTEROL SULF 2.5 MG/0.5ML(0.5%) NEB SOLN NEB SCH ×3 (06:44→19:36)
[2021-12-29] MEDS: PROPOFOL 100 ML IV SCH (07:00)
[2021-12-29] MEDS: levoFLOXacin 500MG 100 ML IV SCH (09:02)
[2021-12-29] MEDS: risperiDONE 1 MG TAB PO SCH (09:03)
[2021-12-29] MEDS: MULTIPLE VITAMIN TAB PO SCH (09:05)
[2021-12-29] MEDS: ASCORBIC ACID 500 MG TAB PO SCH ×2 (09:06→22:22)
[2021-12-29] MEDS: ZINC SULFATE 220mg CAP or TAB PO SCH (09:06)
[2021-12-29] MEDS: PANTOPRAZOLE 40 MG/10 ML VIAL INJ IV SCH (09:07)
[2021-12-29] MEDS ORDERED: POTASSIUM CHLORIDE 40 MEQ in D5W/LACTATED RINGERS 1,000 ML IV SCH (09:15)
[2021-12-29] MEDS: ENOXAPARIN SOD 40 MG/0.4 ML SYRINGE SC SCH (09:33)
[2021-12-29] MEDS ORDERED: POTASSIUM EFFERVESENT TAB 25 MEQ GT ONE (10:00)
[2021-12-29] MEDS: fentaNYL Drip 2500mCg/250mlNS 250 ML IV SCH (14:31)
[2021-12-29] MEDS: IPRATROPIUM BROM 0.5 MG/2.5ML INH SOL NEB PRN ×2 (15:55→19:36)
[2021-12-29] MEDS: D5W/SOD CHLO 0.9% 1,000 ML IV SCH (21:28)
[2021-12-29] MEDS: traZODone HCL 50 MG TAB PO SCH (22:22)
[2021-12-30] VITALS (49 sets, daily range): BP systolic 83–146; BP diastolic 42–94
[2021-12-30] MEDS: MIDAZOLAM DRIP 50 mg/50mL 50 ML IV SCH (02:05)
[2021-12-30 03:38] LABS: Basophils # (auto) 0 10 ^3/uL (0-0.2); Basophils % (auto) 0.7 % (0.0-2.0); Eosinophils # (auto) 0.5 10 ^3/uL (0-0.8); Eosinophils % (auto) 6.8 % (0.0-7.0); Hematocrit 36.4 % (41.0-53.0); Hemoglobin 12.4 g/dL (13.5-17.5); Lymphocytes # (auto) 1.5 10 ^3/uL (0.4-5.4); Lymphocytes % (auto) 22.7 % (10.0-50.0); Mean Corpuscular Hemoglobin 31.9 pg (28.0-32.0); Mean Corpuscular Hgb Conc. 34.1 g/dL (32.0-36.0); Mean Corpuscular Volume 93.8 fL (80.0-100.0); Monocytes # (auto) 0.6 10 ^3/uL (0-1.3); Monocytes % (auto) 8.7 % (0.0-12.0); Neutrophils # (auto) 4.1 10 ^3/uL (1.6-8.6); Neutrophils % (auto) 61.1 % (37.0-80.0); Red Blood Cells 3.88 10^6/uL (4.5-5.90); Red Cell Distribution Width 12.4 % (11.8-14.3); White Blood Cell 6.7 10^3/uL (4.4-10.8)
[2021-12-30 03:56] LABS: Albumin 2.5 g/dL (3.4-5.0); Anion Gap 2 (5-15); Blood Urea Nitrogen 15 mg/dL (7-18); Calcium 8.5 mg/dL (8.5-10.1); Carbon Dioxide 29 mmol/L (21-32); Chloride 111 mmol/L (98-107); Glucose 108 mg/dL (74-106); Potassium 3.5 mmol/L (3.5-5.1); Sodium 142 mmol/L (136-145)
[2021-12-30 04:01] LABS: Alanine Aminotransferase 52 U/L (16-61); Alkaline Phosphatase 57 U/L (45-117); Aspartate Aminotransferase 48 U/L (15-37); Bilirubin, Total 1.5 mg/dL (0.2-1.0); GFR African American 178 mL/min; GFR Non-African American 147 mL/min; Total Protein 5.4 g/dL (6.4-8.2)
[2021-12-30 04:06] LABS: BUN/Creatinine Ratio 23.4
[2021-12-30] MEDS: PROPOFOL 100 ML IV SCH (06:36)
[2021-12-30] MEDS: ALBUTEROL SULF 2.5 MG/0.5ML(0.5%) NEB SOLN NEB SCH ×3 (07:52→18:51)
[2021-12-30] MEDS: IPRATROPIUM BROM 0.5 MG/2.5ML INH SOL NEB PRN ×3 (07:52→18:51)
[2021-12-30] MEDS: fentaNYL Drip 2500mCg/250mlNS 250 ML IV SCH (10:45)
[2021-12-30] MEDS: levoFLOXacin 500MG 100 ML IV SCH (10:54)
[2021-12-30] MEDS: ZINC SULFATE 220mg CAP or TAB PO SCH (10:54)
[2021-12-30] MEDS: PANTOPRAZOLE 40 MG/10 ML VIAL INJ IV SCH (10:54)
[2021-12-30] MEDS: ENOXAPARIN SOD 40 MG/0.4 ML SYRINGE SC SCH (10:55)
[2021-12-30] MEDS: MULTIPLE VITAMIN TAB PO SCH (10:55)
[2021-12-30] MEDS: ASCORBIC ACID 500 MG TAB PO SCH ×2 (10:55→22:00)
[2021-12-30] MEDS: risperiDONE 1 MG TAB PO SCH (12:37)
[2021-12-30] MEDS: D5W/SOD CHLO 0.9% 1,000 ML IV SCH ×2 (13:10→23:42)
[2021-12-30] MEDS: traZODone HCL 50 MG TAB PO SCH (22:00)
[2021-12-31] VITALS (20 sets, daily range): BP systolic 98–147; BP diastolic 62–95
[2021-12-31 05:16] LABS: Basophils # (auto) 0 10 ^3/uL (0-0.2); Basophils % (auto) 0.4 % (0.0-2.0); Eosinophils # (auto) 0.5 10 ^3/uL (0-0.8); Eosinophils % (auto) 7.5 % (0.0-7.0); Hematocrit 34.4 % (41.0-53.0); Hemoglobin 12.2 g/dL (13.5-17.5); Lymphocytes # (auto) 1.1 10 ^3/uL (0.4-5.4); Lymphocytes % (auto) 16.8 % (10.0-50.0); Mean Corpuscular Hemoglobin 32.4 pg (28.0-32.0); Mean Corpuscular Hgb Conc. 35.4 g/dL (32.0-36.0); Mean Corpuscular Volume 91.6 fL (80.0-100.0); Monocytes # (auto) 0.6 10 ^3/uL (0-1.3); Monocytes % (auto) 9.1 % (0.0-12.0); Neutrophils # (auto) 4.3 10 ^3/uL (1.6-8.6); Neutrophils % (auto) 66.2 % (37.0-80.0); Nucleated Red Blood Cells % 0.1 %; Red Blood Cells 3.76 10^6/uL (4.5-5.90); Red Cell Distribution Width 12.4 % (11.8-14.3); White Blood Cell 6.4 10^3/uL (4.4-10.8)
[2021-12-31 05:31] LABS: INR 1.13 (0.9-1.15)
[2021-12-31 05:49] LABS: Potassium 3.1 mmol/L (3.5-5.1)
[2021-12-31 06:00] LABS: Albumin 2.5 g/dL (3.4-5.0); BUN/Creatinine Ratio 26.4; Bilirubin, Total 1.4 mg/dL (0.2-1.0); Calcium 8.3 mg/dL (8.5-10.1); Total Protein 5.7 g/dL (6.4-8.2)
[2021-12-31] MEDS: LEVOTHYROXINE SODIUM 50 MCG TAB PO SCH (06:43)
[2021-12-31] MEDS: MIDAZOLAM DRIP 50 mg/50mL 50 ML IV SCH ×2 (06:44→23:00)
[2021-12-31] MEDS: PROPOFOL 100 ML IV SCH (07:00)
[2021-12-31] MEDS ORDERED: POTASSIUM EFFERVESENT TAB 25 MEQ GT ONE (08:15)
[2021-12-31] MEDS: levoFLOXacin 500MG 100 ML IV SCH (08:54)
[2021-12-31] MEDS: PANTOPRAZOLE 40 MG/10 ML VIAL INJ IV SCH (08:54)
[2021-12-31] MEDS: MULTIPLE VITAMIN TAB PO SCH (08:55)
[2021-12-31] MEDS: ASCORBIC ACID 500 MG TAB PO SCH ×2 (08:55→21:52)
[2021-12-31] MEDS: risperiDONE 1 MG TAB PO SCH (08:55)
[2021-12-31] MEDS: ZINC SULFATE 220mg CAP or TAB PO SCH (08:55)
[2021-12-31] MEDS: ENOXAPARIN SOD 40 MG/0.4 ML SYRINGE SC SCH (08:56)
[2021-12-31] MEDS: IPRATROPIUM BROM 0.5 MG/2.5ML INH SOL NEB PRN ×3 (10:38→18:24)
[2021-12-31] MEDS: ALBUTEROL SULF 2.5 MG/0.5ML(0.5%) NEB SOLN NEB SCH ×3 (10:38→18:24)
[2021-12-31] MEDS: fentaNYL Drip 2500mCg/250mlNS 250 ML IV SCH (10:45)
[2021-12-31] MEDS: POTASSIUM CHL 10MEQ/50ML 50 ML IV SCH ×4 (12:30→16:17)
[2021-12-31] MEDS: traZODone HCL 50 MG TAB PO SCH (21:52)
[2021-12-31] MEDS: D5W/SOD CHLO 0.9% 1,000 ML IV SCH (22:30)
[2022-01-01] VITALS (14 sets, daily range): BP systolic 99–144; BP diastolic 53–94
[2022-01-01 03:37] LABS: Basophils # (auto) 0 10 ^3/uL (0-0.2); Basophils % (auto) 0.3 % (0.0-2.0); Eosinophils # (auto) 0.2 10 ^3/uL (0-0.8); Eosinophils % (auto) 3.1 % (0.0-7.0); Hematocrit 35.1 % (41.0-53.0); Hemoglobin 12.4 g/dL (13.5-17.5); Lymphocytes # (auto) 0.9 10 ^3/uL (0.4-5.4); Lymphocytes % (auto) 14.7 % (10.0-50.0); Mean Corpuscular Hemoglobin 32.2 pg (28.0-32.0); Mean Corpuscular Hgb Conc. 35.2 g/dL (32.0-36.0); Mean Corpuscular Volume 91.4 fL (80.0-100.0); Monocytes # (auto) 0.5 10 ^3/uL (0-1.3); Monocytes % (auto) 8.6 % (0.0-12.0); Neutrophils # (auto) 4.4 10 ^3/uL (1.6-8.6); Neutrophils % (auto) 73.3 % (37.0-80.0); Red Blood Cells 3.84 10^6/uL (4.5-5.90); Red Cell Distribution Width 12.4 % (11.8-14.3); White Blood Cell 6.1 10^3/uL (4.4-10.8)
[2022-01-01 03:50] LABS: INR 1.16 (0.9-1.15); Partial Thromboplastin Time 33.7 sec (23.6-33.0)
[2022-01-01 03:51] LABS: Albumin 2.6 g/dL (3.4-5.0); Calcium 8.4 mg/dL (8.5-10.1); Potassium 3.5 mmol/L (3.5-5.1)
[2022-01-01 03:55] LABS: BUN/Creatinine Ratio 20.8; Bilirubin, Total 1.1 mg/dL (0.2-1.0); Phosphorus 3.5 mg/dL (2.5-4.90); Total Protein 5.9 g/dL (6.4-8.2)
[2022-01-01] MEDS: ALBUTEROL SULF 2.5 MG/0.5ML(0.5%) NEB SOLN NEB SCH ×3 (06:00→18:27)
[2022-01-01] MEDS: PROPOFOL 100 ML IV SCH (07:00)
[2022-01-01] MEDS: LEVOTHYROXINE SODIUM 50 MCG TAB PO SCH (07:01)
[2022-01-01] MEDS: PANTOPRAZOLE 40 MG/10 ML VIAL INJ IV SCH (10:00)
[2022-01-01] MEDS: ENOXAPARIN SOD 40 MG/0.4 ML SYRINGE SC SCH (10:00)
[2022-01-01] MEDS: ASCORBIC ACID 500 MG TAB PO SCH ×2 (10:00→22:00)
[2022-01-01] MEDS: MULTIPLE VITAMIN TAB PO SCH (10:00)
[2022-01-01] MEDS: risperiDONE 1 MG TAB PO SCH (10:00)
[2022-01-01] MEDS: ZINC SULFATE 220mg CAP or TAB PO SCH (10:00)
[2022-01-01] MEDS: levoFLOXacin 500MG 100 ML IV SCH (10:09)
[2022-01-01] MEDS: fentaNYL Drip 2500mCg/250mlNS 250 ML IV SCH (10:45)
[2022-01-01] MEDS ORDERED: EPINEPHrine HCL 0.5 ML NEB ONE (15:33)
[2022-01-01] MEDS ORDERED: EPINEPHrine HCL 0.5 ML NEB NEB ONE (15:45)
[2022-01-01] MEDS: IPRATROPIUM BROM 0.5 MG/2.5ML INH SOL NEB PRN (18:29)
[2022-01-01] MEDS: traZODone HCL 50 MG TAB PO SCH ×2 (22:00→22:57)
[2022-01-01] MEDS: LORazepam 2MG/ML-1ML VIAL IV PRN (22:59)
[2022-01-02] VITALS (24 sets, daily range): BP systolic 105–147; BP diastolic 68–93
[2022-01-02] MEDS: LEVOTHYROXINE SODIUM 50 MCG TAB PO SCH (05:56)
[2022-01-02] MEDS: IPRATROPIUM BROM 0.5 MG/2.5ML INH SOL NEB PRN ×3 (06:00→19:57)
[2022-01-02] MEDS: ALBUTEROL SULF 2.5 MG/0.5ML(0.5%) NEB SOLN NEB SCH ×3 (06:00→19:57)
[2022-01-02] MEDS: PROPOFOL 100 ML IV SCH (07:00)
[2022-01-02] MEDS: MULTIPLE VITAMIN TAB PO SCH (10:00)
[2022-01-02] MEDS: ASCORBIC ACID 500 MG TAB PO SCH ×2 (10:00→22:00)
[2022-01-02] MEDS: ZINC SULFATE 220mg CAP or TAB PO SCH (10:00)
[2022-01-02] MEDS: risperiDONE 1 MG TAB PO SCH (10:00)
[2022-01-02] MEDS: fentaNYL Drip 2500mCg/250mlNS 250 ML IV SCH (10:45)
[2022-01-02] MEDS: MIDAZOLAM DRIP 50 mg/50mL 50 ML IV SCH (10:45)
[2022-01-02] MEDS: PANTOPRAZOLE 40 MG/10 ML VIAL INJ IV SCH (10:54)
[2022-01-02] MEDS: ENOXAPARIN SOD 40 MG/0.4 ML SYRINGE SC SCH (10:55)
[2022-01-02] MEDS: levoFLOXacin 500MG 100 ML IV SCH (11:33)
[2022-01-02] MEDS ORDERED: Jevity 1.2 Cal/Fiber 1 Liter GT SCH (18:45)
[2022-01-03] VITALS (22 sets, daily range): BP systolic 108–137; BP diastolic 60–81
[2022-01-03] MEDS: IPRATROPIUM BROM 0.5 MG/2.5ML INH SOL NEB PRN ×2 (00:34→17:51)
[2022-01-03] MEDS: ALBUTEROL SULF 2.5 MG/0.5ML(0.5%) NEB SOLN NEB SCH ×4 (00:35→17:51)
[2022-01-03 03:28] LABS: BUN/Creatinine Ratio 39.3; Calcium 9.2 mg/dL (8.5-10.1); Potassium 3.2 mmol/L (3.5-5.1)
[2022-01-03] MEDS: LEVOTHYROXINE SODIUM 50 MCG TAB PO SCH (08:44)
[2022-01-03] MEDS: PANTOPRAZOLE 40 MG/10 ML VIAL INJ IV SCH (10:10)
[2022-01-03] MEDS: MULTIPLE VITAMIN TAB PO SCH (10:10)
[2022-01-03] MEDS: ZINC SULFATE 220mg CAP or TAB PO SCH (10:11)
[2022-01-03] MEDS: risperiDONE 1 MG TAB PO SCH (10:11)
[2022-01-03] MEDS: ENOXAPARIN SOD 40 MG/0.4 ML SYRINGE SC SCH (10:11)
[2022-01-03] MEDS: ASCORBIC ACID 500 MG TAB PO SCH ×2 (10:11→21:21)
[2022-01-03] MEDS: levoFLOXacin 500MG 100 ML IV SCH (10:30)
[2022-01-03] MEDS: traZODone HCL 50 MG TAB PO SCH (21:22)
[2022-01-04] VITALS (26 sets, daily range): BP systolic 110–136; BP diastolic 60–80
[2022-01-04] MEDS: LEVOTHYROXINE SODIUM 50 MCG TAB PO SCH (06:36)
[2022-01-04] MEDS: ALBUTEROL SULF 2.5 MG/0.5ML(0.5%) NEB SOLN NEB SCH ×3 (08:12→18:00)
[2022-01-04] MEDS: IPRATROPIUM BROM 0.5 MG/2.5ML INH SOL NEB PRN ×2 (08:12→15:35)
[2022-01-04] MEDS ORDERED: LIDOCAINE VISCOUS 2% 15ML UD ONE (08:24)
[2022-01-04] MEDS ORDERED: SODIUM CHLORIDE LOCK 20 ML ONE (08:24)
[2022-01-04] MEDS ORDERED: diphenhdrAMINE HCL 50 MG/1 ML VL ONE (08:24)
[2022-01-04] MEDS: MULTIPLE VITAMIN TAB PO SCH (10:00)
[2022-01-04] MEDS: ZINC SULFATE 220mg CAP or TAB PO SCH (10:00)
[2022-01-04] MEDS: PANTOPRAZOLE 40 MG/10 ML VIAL INJ IV SCH (10:00)
[2022-01-04] MEDS: risperiDONE 1 MG TAB PO SCH (10:00)
[2022-01-04] MEDS: levoFLOXacin 500MG 100 ML IV SCH (10:00)
[2022-01-04] MEDS: ASCORBIC ACID 500 MG TAB PO SCH ×2 (10:00→21:45)
[2022-01-04] MEDS: ENOXAPARIN SOD 40 MG/0.4 ML SYRINGE SC SCH (10:00)
[2022-01-04] MEDS: fentaNYL CITRATE 100 MCG/2 ML VL ONE ×2 (11:19→11:22)
[2022-01-04] MEDS: MIDAZOLAM HCL 5 MG/ML-1ML VIAL ONE ×3 (11:19→11:25)
[2022-01-04] MEDS ORDERED: LIDOCAINE 1%-Mpf/Epinephrine 1:200,000 ONE (13:53)
[2022-01-04] MEDS ORDERED: HYDROmorphone HCL 2 MG/ML VL ONE (13:55)
[2022-01-04] MEDS ORDERED: MIDAZOLAM HCL 2MG/2ML 2ml VIAL (1mg/ml) ONE (13:55)
[2022-01-04] MEDS ORDERED: fentaNYL CITRATE 100 MCG/2 ML VL ONE (13:55)
[2022-01-04] MEDS ORDERED: MORPHINE SULFATE 4 MG/ML SYR/VIAL IV PRN (14:00)
[2022-01-04] MEDS ORDERED: HYDROmorphone HCL 2 MG/ML VL IV PRN (14:00)
[2022-01-04] MEDS ORDERED: ePHEDrine SULFATE 50 MG/ML AMP IV PRN (14:00)
[2022-01-04] MEDS ORDERED: LABETALOL HCL 5 MG/ML 4ML SYRINGE IV PRN (14:00)
[2022-01-04] MEDS ORDERED: ONDANSETRON HCL 4 MG/2 ML VIAL IV PRN (14:00)
[2022-01-04] MEDS ORDERED: MIDAZOLAM HCL 2MG/2ML 2ml VIAL (1mg/ml) IV PRN (14:00)
[2022-01-04] MEDS ORDERED: MORPHINE SULFATE INJECTION 2 MG/ML SYRG IV PRN ×2 (14:15)
[2022-01-04] MEDS ORDERED: PROPOFOL 10 MG/ML 20 ML IV ONE (14:17)
[2022-01-04] MEDS ORDERED: ROCURONIUM 10MG/ML 10ML VIAL IV ONE (14:18)
[2022-01-04] MEDS: POTASSIUM CHL 10MEQ/50ML 50 ML IV SCH ×3 (15:00→17:00)
[2022-01-04] MEDS: traZODone HCL 50 MG TAB PO SCH (21:45)
[2022-01-05] VITALS (24 sets, daily range): BP systolic 112–130; BP diastolic 58–89
[2022-01-05] MEDS: LEVOTHYROXINE SODIUM 50 MCG TAB PO SCH (06:03)
[2022-01-05] MEDS: IPRATROPIUM BROM 0.5 MG/2.5ML INH SOL NEB PRN ×2 (08:42→19:15)
[2022-01-05] MEDS: ALBUTEROL SULF 2.5 MG/0.5ML(0.5%) NEB SOLN NEB SCH ×2 (08:42→19:15)
[2022-01-05] MEDS: levoFLOXacin 500MG 100 ML IV SCH (10:00)
[2022-01-05] MEDS: risperiDONE 1 MG TAB PO SCH (10:00)
[2022-01-05] MEDS: PANTOPRAZOLE 40 MG/10 ML VIAL INJ IV SCH (10:00)
[2022-01-05] MEDS: ENOXAPARIN SOD 40 MG/0.4 ML SYRINGE SC SCH (10:00)
[2022-01-05] MEDS: ASCORBIC ACID 500 MG TAB PO SCH ×2 (10:00→22:02)
[2022-01-05] MEDS: ZINC SULFATE 220mg CAP or TAB PO SCH (10:00)
[2022-01-05] MEDS: MULTIPLE VITAMIN TAB PO SCH (10:00)
[2022-01-05] MEDS: traZODone HCL 50 MG TAB PO SCH (22:02)
[2022-01-05] MEDS: LORazepam 2MG/ML-1ML VIAL IV PRN (22:35)
[2022-01-06] VITALS (12 sets, daily range): BP systolic 111–141; BP diastolic 56–94
[2022-01-06] MEDS: LORazepam 2MG/ML-1ML VIAL IV PRN ×4 (04:59→20:28)
[2022-01-06] MEDS: LEVOTHYROXINE SODIUM 50 MCG TAB PO SCH (06:08)
[2022-01-06] MEDS: IPRATROPIUM BROM 0.5 MG/2.5ML INH SOL NEB PRN ×3 (08:25→18:27)
[2022-01-06] MEDS: ALBUTEROL SULF 2.5 MG/0.5ML(0.5%) NEB SOLN NEB SCH ×3 (08:25→18:27)
[2022-01-06] MEDS: MULTIPLE VITAMIN TAB PO SCH ×2 (10:00→10:08)
[2022-01-06] MEDS: PANTOPRAZOLE 40 MG/10 ML VIAL INJ IV SCH (10:07)
[2022-01-06] MEDS: levoFLOXacin 500MG 100 ML IV SCH (10:07)
[2022-01-06] MEDS: ZINC SULFATE 220mg CAP or TAB PO SCH (10:08)
[2022-01-06] MEDS: risperiDONE 1 MG TAB PO SCH (10:08)
[2022-01-06] MEDS: ENOXAPARIN SOD 40 MG/0.4 ML SYRINGE SC SCH (10:09)
[2022-01-06] MEDS: ASCORBIC ACID 500 MG TAB PO SCH ×2 (10:09→22:15)
[2022-01-06] MEDS: ACETAMINOPHEN 650 MG RECT SUPP PR PRN (22:15)
[2022-01-06] MEDS: traZODone HCL 50 MG TAB PO SCH (22:15)
[2022-01-06] MEDS: HALOPERIDOL LACTATE 5 MG/ML INJ VIAL IM PRN (23:37)
[2022-01-07] VITALS (7 sets, daily range): BP systolic 97–125; BP diastolic 57–85
[2022-01-07] MEDS: LEVOTHYROXINE SODIUM 50 MCG TAB PO SCH (06:29)
[2022-01-07] MEDS: LORazepam 2MG/ML-1ML VIAL IV PRN ×2 (09:00→21:52)
[2022-01-07] MEDS: HALOPERIDOL LACTATE 5 MG/ML INJ VIAL IM PRN ×2 (09:00→21:52)
[2022-01-07] MEDS: ASCORBIC ACID 500 MG TAB PO SCH ×2 (10:00→21:51)
[2022-01-07 10:48] LABS: Basophils # (auto) 0 10 ^3/uL (0-0.2); Basophils % (auto) 0.2 % (0.0-2.0); Eosinophils # (auto) 0.1 10 ^3/uL (0-0.8); Eosinophils % (auto) 1.8 % (0.0-7.0); Hematocrit 38.2 % (41.0-53.0); Hemoglobin 13.2 g/dL (13.5-17.5); Lymphocytes # (auto) 0.7 10 ^3/uL (0.4-5.4); Lymphocytes % (auto) 10.2 % (10.0-50.0); Mean Corpuscular Hemoglobin 31.7 pg (28.0-32.0); Mean Corpuscular Hgb Conc. 34.4 g/dL (32.0-36.0); Monocytes # (auto) 0.6 10 ^3/uL (0-1.3); Monocytes % (auto) 8.6 % (0.0-12.0); Neutrophils # (auto) 5.2 10 ^3/uL (1.6-8.6); Neutrophils % (auto) 79.2 % (37.0-80.0); Nucleated Red Blood Cells % 0.1 %; Red Blood Cells 4.16 10^6/uL (4.5-5.90); Red Cell Distribution Width 12.6 % (11.8-14.3); White Blood Cell 6.5 10^3/uL (4.4-10.8)
[2022-01-07 11:00] LABS: Albumin 3.1 g/dL (3.4-5.0); Calcium 9.2 mg/dL (8.5-10.1)
[2022-01-07 11:04] LABS: Bilirubin, Total 1.3 mg/dL (0.2-1.0); Total Protein 6.4 g/dL (6.4-8.2)
[2022-01-07] MEDS: levoFLOXacin 500MG 100 ML IV SCH ×2 (13:57→19:02)
[2022-01-07] MEDS: PANTOPRAZOLE 40 MG/10 ML VIAL INJ IV SCH (13:57)
[2022-01-07] MEDS: MULTIPLE VITAMIN TAB PO SCH (13:58)
[2022-01-07] MEDS: ZINC SULFATE 220mg CAP or TAB PO SCH (13:58)
[2022-01-07] MEDS: risperiDONE 1 MG TAB PO SCH (13:59)
[2022-01-07] MEDS: ENOXAPARIN SOD 40 MG/0.4 ML SYRINGE SC SCH (14:00)
[2022-01-07] MEDS: ALBUTEROL SULF 2.5 MG/0.5ML(0.5%) NEB SOLN NEB SCH ×3 (17:14→18:11)
[2022-01-07] MEDS: IPRATROPIUM BROM 0.5 MG/2.5ML INH SOL NEB PRN ×2 (17:15→18:11)
[2022-01-07] MEDS: FREE WATER GT SCH (18:00)
[2022-01-07] MEDS: POTASSIUM CHL 10MEQ/50ML 50 ML IV SCH ×4 (19:03→21:30)
[2022-01-07] MEDS: traZODone HCL 50 MG TAB PO SCH (21:51)
[2022-01-08] VITALS (24 sets, daily range): BP systolic 100–128; BP diastolic 48–96
[2022-01-08] MEDS: FREE WATER GT SCH ×4 (05:51→17:03)
[2022-01-08] MEDS: LEVOTHYROXINE SODIUM 50 MCG TAB PO SCH (06:04)
[2022-01-08] MEDS: IPRATROPIUM BROM 0.5 MG/2.5ML INH SOL NEB PRN ×3 (06:56→20:47)
[2022-01-08] MEDS: ALBUTEROL SULF 2.5 MG/0.5ML(0.5%) NEB SOLN NEB SCH ×3 (06:56→20:47)
[2022-01-08] MEDS: MULTIPLE VITAMIN TAB PO SCH (09:23)
[2022-01-08] MEDS: ZINC SULFATE 220mg CAP or TAB PO SCH (09:23)
[2022-01-08] MEDS: ASCORBIC ACID 500 MG TAB PO SCH ×2 (09:24→22:02)
[2022-01-08] MEDS: ENOXAPARIN SOD 40 MG/0.4 ML SYRINGE SC SCH (09:24)
[2022-01-08] MEDS: PANTOPRAZOLE 40 MG/10 ML VIAL INJ IV SCH (09:24)
[2022-01-08] MEDS: risperiDONE 1 MG TAB PO SCH (09:24)
[2022-01-08] MEDS: HALOPERIDOL LACTATE 5 MG/ML INJ VIAL IM PRN ×2 (11:31→22:02)
[2022-01-08] MEDS: LORazepam 2MG/ML-1ML VIAL IV PRN (22:02)
[2022-01-08] MEDS: traZODone HCL 50 MG TAB PO SCH (22:02)
[2022-01-09] VITALS (7 sets, daily range): BP systolic 127–156; BP diastolic 49–98
[2022-01-09] MEDS: FREE WATER GT SCH ×4 (01:28→17:52)
[2022-01-09] MEDS: IPRATROPIUM BROM 0.5 MG/2.5ML INH SOL NEB PRN ×3 (06:02→20:07)
[2022-01-09] MEDS: ALBUTEROL SULF 2.5 MG/0.5ML(0.5%) NEB SOLN NEB SCH ×3 (06:02→20:07)
[2022-01-09] MEDS: LEVOTHYROXINE SODIUM 50 MCG TAB PO SCH (06:40)
[2022-01-09] MEDS: PANTOPRAZOLE 40 MG/10 ML VIAL INJ IV SCH (10:00)
[2022-01-09] MEDS: HALOPERIDOL LACTATE 5 MG/ML INJ VIAL IM PRN (10:00)
[2022-01-09] MEDS: ENOXAPARIN SOD 40 MG/0.4 ML SYRINGE SC SCH (10:00)
[2022-01-09] MEDS: levoFLOXacin 500MG 100 ML IV SCH (10:20)
[2022-01-09] MEDS: risperiDONE 1 MG TAB PO SCH (11:00)
[2022-01-09] MEDS: ZINC SULFATE 220mg CAP or TAB PO SCH (11:00)
[2022-01-09] MEDS: MULTIPLE VITAMIN TAB PO SCH (11:00)
[2022-01-09] MEDS: ASCORBIC ACID 500 MG TAB PO SCH (11:00)
[2022-01-09] MEDS ORDERED: HALOPERIDOL LACTATE 5 MG/ML INJ VIAL IM PRN (12:00)
[2022-01-09] MEDS: LORazepam 2MG/ML-1ML VIAL IM PRN (13:10)
[2022-01-09] MEDS: diphenhdrAMINE HCL 50 MG/1 ML VL IV PRN (18:29)
[2022-01-10] MEDS: FREE WATER GT SCH ×4 (00:35→12:00)
[2022-01-10 05:00] VITALS: BP 149/100
[2022-01-10] MEDS: LEVOTHYROXINE SODIUM 50 MCG TAB GT SCH (06:43)
[2022-01-10] MEDS: IPRATROPIUM BROM 0.5 MG/2.5ML INH SOL NEB PRN ×3 (07:40→19:13)
[2022-01-10] MEDS: ALBUTEROL SULF 2.5 MG/0.5ML(0.5%) NEB SOLN NEB SCH ×3 (07:40→19:13)
[2022-01-10 09:00] VITALS: BP 110/52
[2022-01-10] MEDS: PANTOPRAZOLE 40 MG/10 ML VIAL INJ IV SCH (10:06)
[2022-01-10] MEDS: MULTIPLE VITAMIN TAB GT SCH (10:07)
[2022-01-10] MEDS: risperiDONE 1 MG TAB GT SCH (10:07)
[2022-01-10] MEDS: ENOXAPARIN SOD 40 MG/0.4 ML SYRINGE SC SCH (10:08)
[2022-01-10] MEDS: levoFLOXacin 500MG 100 ML IV SCH (10:58)
[2022-01-10 13:00] VITALS: BP 119/59
[2022-01-10 20:00] VITALS: BP 110/78
[2022-01-10 21:31] VITALS: BP 122/56
[2022-01-10] MEDS: Jevity 1.2 Cal/Fiber 1 Liter GT SCH (22:00)
[2022-01-10] MEDS: traZODone HCL 50 MG TAB GT SCH (22:00)
[2022-01-11] VITALS (7 sets, daily range): BP systolic 96–130; BP diastolic 53–75
[2022-01-11] MEDS: FREE WATER GT SCH ×4 (00:48→18:00)
[2022-01-11] MEDS: Jevity 1.2 Cal/Fiber 1 Liter GT SCH ×3 (06:30→22:00)
[2022-01-11] MEDS: ALBUTEROL SULF 2.5 MG/0.5ML(0.5%) NEB SOLN NEB SCH ×3 (07:22→18:39)
[2022-01-11] MEDS: MULTIPLE VITAMIN TAB GT SCH (09:36)
[2022-01-11] MEDS: risperiDONE 1 MG TAB GT SCH (09:36)
[2022-01-11] MEDS: PANTOPRAZOLE 40 MG/10 ML VIAL INJ IV SCH (09:37)
[2022-01-11] MEDS: ENOXAPARIN SOD 40 MG/0.4 ML SYRINGE SC SCH (09:37)
[2022-01-11] MEDS: LEVOTHYROXINE SODIUM 50 MCG TAB GT SCH (09:37)
[2022-01-11 09:59] LABS: Basophils # (auto) 0 10 ^3/uL (0-0.2); Basophils % (auto) 0.5 % (0.0-2.0); Eosinophils # (auto) 0.1 10 ^3/uL (0-0.8); Hematocrit 39.1 % (41.0-53.0); Hemoglobin 13.7 g/dL (13.5-17.5); Lymphocytes % (auto) 23.8 % (10.0-50.0); Mean Corpuscular Hemoglobin 32.3 pg (28.0-32.0); Mean Corpuscular Hgb Conc. 35.2 g/dL (32.0-36.0); Mean Corpuscular Volume 91.8 fL (80.0-100.0); Monocytes # (auto) 0.6 10 ^3/uL (0-1.3); Monocytes % (auto) 12.8 % (0.0-12.0); Neutrophils # (auto) 2.7 10 ^3/uL (1.6-8.6); Neutrophils % (auto) 60.9 % (37.0-80.0); Nucleated Red Blood Cells % 0.5 %; Red Blood Cells 4.26 10^6/uL (4.5-5.90); Red Cell Distribution Width 12.3 % (11.8-14.3); White Blood Cell 4.4 10^3/uL (4.4-10.8)
[2022-01-11 10:08] LABS: Albumin 2.8 g/dL (3.4-5.0); Calcium 8.9 mg/dL (8.5-10.1); Potassium 3.7 mmol/L (3.5-5.1)
[2022-01-11 10:13] LABS: BUN/Creatinine Ratio 29.3; Bilirubin, Total 0.8 mg/dL (0.2-1.0); Total Protein 6.2 g/dL (6.4-8.2)
[2022-01-11] MEDS: IPRATROPIUM BROM 0.5 MG/2.5ML INH SOL NEB PRN (18:39)
[2022-01-11] MEDS: traZODone HCL 50 MG TAB GT SCH (22:00)
[2022-01-12] MEDS: FREE WATER GT SCH ×5 (02:18→23:46)
[2022-01-12 05:00] VITALS: BP 108/63
[2022-01-12] MEDS: IPRATROPIUM BROM 0.5 MG/2.5ML INH SOL NEB PRN ×2 (06:19→18:49)
[2022-01-12] MEDS: ALBUTEROL SULF 2.5 MG/0.5ML(0.5%) NEB SOLN NEB SCH ×3 (06:19→18:48)
[2022-01-12] MEDS: Jevity 1.2 Cal/Fiber 1 Liter GT SCH ×3 (06:24→22:00)
[2022-01-12] MEDS: LEVOTHYROXINE SODIUM 50 MCG TAB GT SCH (06:25)
[2022-01-12 08:00] VITALS: BP 103/56
[2022-01-12] MEDS: ENOXAPARIN SOD 40 MG/0.4 ML SYRINGE SC SCH (09:31)
[2022-01-12] MEDS: MULTIPLE VITAMIN TAB GT SCH (09:32)
[2022-01-12] MEDS: risperiDONE 1 MG TAB GT SCH (09:33)
[2022-01-12] MEDS: PANTOPRAZOLE 40 MG/10 ML VIAL INJ IV SCH (09:33)
[2022-01-12 20:00] VITALS: BP 132/79
[2022-01-12] MEDS: traZODone HCL 50 MG TAB GT SCH (22:00)
[2022-01-13] MEDS: FREE WATER GT SCH ×4 (05:48→22:07)
[2022-01-13] MEDS: Jevity 1.2 Cal/Fiber 1 Liter GT SCH ×3 (05:50→22:07)
[2022-01-13] MEDS: LEVOTHYROXINE SODIUM 50 MCG TAB GT SCH (06:56)
[2022-01-13 09:00] VITALS: BP 112/61
[2022-01-13] MEDS: LORazepam 2MG/ML-1ML VIAL IM PRN (11:34)
[2022-01-13] MEDS: PANTOPRAZOLE 40 MG/10 ML VIAL INJ IV SCH (11:35)
[2022-01-13] MEDS: risperiDONE 1 MG TAB GT SCH (11:35)
[2022-01-13] MEDS: MULTIPLE VITAMIN TAB GT SCH (11:35)
[2022-01-13 13:00] VITALS: BP 122/73
[2022-01-13] MEDS: diphenhdrAMINE HCL 50 MG/1 ML VL IV PRN (14:04)
[2022-01-13] MEDS ORDERED: HALOPERIDOL LACTATE 5 MG/ML INJ VIAL ONE (14:57)
[2022-01-13] MEDS ORDERED: HALOPERIDOL LACTATE 5 MG/ML INJ VIAL IM ONE (15:00)
[2022-01-13] MEDS: ENOXAPARIN SOD 40 MG/0.4 ML SYRINGE SC SCH (16:52)
[2022-01-13] MEDS: IPRATROPIUM BROM 0.5 MG/2.5ML INH SOL NEB PRN (16:53)
[2022-01-13] MEDS: ALBUTEROL SULF 2.5 MG/0.5ML(0.5%) NEB SOLN NEB SCH ×2 (16:53→18:00)
[2022-01-13 17:00] VITALS: BP 110/62
[2022-01-13 22:00] VITALS: BP 115/78
[2022-01-13] MEDS: traZODone HCL 50 MG TAB GT SCH (22:07)
[2022-01-14 05:00] VITALS: BP 120/67
[2022-01-14] MEDS: LEVOTHYROXINE SODIUM 50 MCG TAB GT SCH (05:46)
[2022-01-14] MEDS: Jevity 1.2 Cal/Fiber 1 Liter GT SCH ×3 (05:46→22:10)
[2022-01-14] MEDS: FREE WATER GT SCH ×4 (05:46→22:10)
[2022-01-14] MEDS: IPRATROPIUM BROM 0.5 MG/2.5ML INH SOL NEB PRN ×2 (06:53→17:53)
[2022-01-14] MEDS: ALBUTEROL SULF 2.5 MG/0.5ML(0.5%) NEB SOLN NEB SCH ×3 (06:53→18:00)
[2022-01-14] MEDS: risperiDONE 1 MG TAB GT SCH (10:51)
[2022-01-14] MEDS: MULTIPLE VITAMIN TAB GT SCH (10:51)
[2022-01-14] MEDS: PANTOPRAZOLE 40 MG/10 ML VIAL INJ IV SCH (10:52)
[2022-01-14] MEDS: ENOXAPARIN SOD 40 MG/0.4 ML SYRINGE SC SCH (10:52)
[2022-01-14 22:00] VITALS: BP 106/54
[2022-01-14] MEDS: traZODone HCL 50 MG TAB GT SCH (22:10)
[2022-01-15 05:00] VITALS: BP 109/82
[2022-01-15] MEDS: Jevity 1.2 Cal/Fiber 1 Liter GT SCH ×3 (06:10→22:33)
[2022-01-15] MEDS: FREE WATER GT SCH ×3 (06:10→18:00)
[2022-01-15] MEDS: LEVOTHYROXINE SODIUM 50 MCG TAB GT SCH (06:10)
[2022-01-15] MEDS: IPRATROPIUM BROM 0.5 MG/2.5ML INH SOL NEB PRN ×3 (06:58→19:27)
[2022-01-15] MEDS: ALBUTEROL SULF 2.5 MG/0.5ML(0.5%) NEB SOLN NEB SCH ×3 (06:58→19:27)
[2022-01-15 09:00] VITALS: BP 106/65
[2022-01-15] MEDS: risperiDONE 1 MG TAB GT SCH ×2 (10:10→12:39)
[2022-01-15] MEDS: MULTIPLE VITAMIN TAB GT SCH ×2 (10:10→12:39)
[2022-01-15] MEDS: PANTOPRAZOLE 40 MG/10 ML VIAL INJ IV SCH (10:11)
[2022-01-15] MEDS: ENOXAPARIN SOD 40 MG/0.4 ML SYRINGE SC SCH (10:11)
[2022-01-15 13:00] VITALS: BP 100/54
[2022-01-15] MEDS: HALOPERIDOL LACTATE 5 MG/ML INJ VIAL IM SCH ×2 (15:47→22:32)
[2022-01-15 17:00] VITALS: BP 108/59
[2022-01-15 21:58] VITALS: BP 97/68
[2022-01-15] MEDS ORDERED: QUEtiapine FUMARATE 100 MG TAB PO SCH (22:00)
[2022-01-15] MEDS ORDERED: traZODone HCL 50 MG TAB PO SCH (22:00)
[2022-01-15] MEDS: traZODone HCL 50 MG TAB GT SCH (22:31)
[2022-01-15] MEDS: QUEtiapine FUMARATE 100 MG TAB GT SCH (22:32)
[2022-01-16] MEDS: FREE WATER GT SCH ×4 (00:20→18:22)
[2022-01-16] MEDS: Jevity 1.2 Cal/Fiber 1 Liter GT SCH ×3 (05:27→21:55)
[2022-01-16 05:55] VITALS: BP 126/55
[2022-01-16] MEDS: HALOPERIDOL LACTATE 5 MG/ML INJ VIAL IM SCH ×3 (06:04→21:43)
[2022-01-16] MEDS: LEVOTHYROXINE SODIUM 50 MCG TAB GT SCH (06:04)
[2022-01-16] MEDS: ALBUTEROL SULF 2.5 MG/0.5ML(0.5%) NEB SOLN NEB SCH ×2 (06:16→12:26)
[2022-01-16] MEDS: IPRATROPIUM BROM 0.5 MG/2.5ML INH SOL NEB PRN ×2 (06:16→12:26)
[2022-01-16 09:00] VITALS: BP 113/71
[2022-01-16] MEDS: risperiDONE 1 MG TAB GT SCH (11:24)
[2022-01-16] MEDS: QUEtiapine FUMARATE 100 MG TAB GT SCH ×2 (11:25→21:43)
[2022-01-16] MEDS: PANTOPRAZOLE 40 MG/10 ML VIAL INJ IV SCH (11:25)
[2022-01-16] MEDS: ENOXAPARIN SOD 40 MG/0.4 ML SYRINGE SC SCH (11:26)
[2022-01-16 12:13] VITALS: BP 126/55
[2022-01-16 17:00] VITALS: BP 106/64
[2022-01-16 21:12] LABS: Basophils # (auto) 0 10 ^3/uL (0-0.2); Basophils % (auto) 0.6 % (0.0-2.0); Eosinophils # (auto) 0.3 10 ^3/uL (0-0.8); Eosinophils % (auto) 7.1 % (0.0-7.0); Hematocrit 39.6 % (41.0-53.0); Lymphocytes # (auto) 0.9 10 ^3/uL (0.4-5.4); Lymphocytes % (auto) 19.8 % (10.0-50.0); Mean Corpuscular Hemoglobin 32.1 pg (28.0-32.0); Mean Corpuscular Hgb Conc. 35.5 g/dL (32.0-36.0); Mean Corpuscular Volume 90.3 fL (80.0-100.0); Monocytes # (auto) 0.6 10 ^3/uL (0-1.3); Monocytes % (auto) 12.4 % (0.0-12.0); Neutrophils # (auto) 2.8 10 ^3/uL (1.6-8.6); Neutrophils % (auto) 60.1 % (37.0-80.0); Nucleated Red Blood Cells % 0.1 %; Red Blood Cells 4.38 10^6/uL (4.5-5.90); White Blood Cell 4.7 10^3/uL (4.4-10.8)
[2022-01-16 21:28] LABS: Albumin 3.1 g/dL (3.4-5.0); Potassium 4.5 mmol/L (3.5-5.1)
[2022-01-16 21:32] LABS: BUN/Creatinine Ratio 23.4; Bilirubin, Total 0.7 mg/dL (0.2-1.0); Total Protein 6.4 g/dL (6.4-8.2)
[2022-01-16] MEDS: traZODone HCL 50 MG TAB GT SCH (21:43)
[2022-01-16 22:00] VITALS: BP 108/64
[2022-01-17 05:00] VITALS: BP 109/73
[2022-01-17] MEDS: HALOPERIDOL LACTATE 5 MG/ML INJ VIAL IM SCH ×3 (06:00→21:35)
[2022-01-17] MEDS: FREE WATER GT SCH ×4 (06:01→18:25)
[2022-01-17] MEDS: LEVOTHYROXINE SODIUM 50 MCG TAB GT SCH (06:01)
[2022-01-17] MEDS: Jevity 1.2 Cal/Fiber 1 Liter GT SCH ×3 (06:01→21:35)
[2022-01-17 06:22] LABS: Basophils # (auto) 0 10 ^3/uL (0-0.2); Basophils % (auto) 0.4 % (0.0-2.0); Eosinophils # (auto) 0.4 10 ^3/uL (0-0.8); Eosinophils % (auto) 9.1 % (0.0-7.0); Hematocrit 39.1 % (41.0-53.0); Hemoglobin 14.1 g/dL (13.5-17.5); Lymphocytes # (auto) 0.9 10 ^3/uL (0.4-5.4); Lymphocytes % (auto) 21.7 % (10.0-50.0); Mean Corpuscular Hemoglobin 32.5 pg (28.0-32.0); Mean Corpuscular Hgb Conc. 36.1 g/dL (32.0-36.0); Mean Corpuscular Volume 90.1 fL (80.0-100.0); Monocytes # (auto) 0.6 10 ^3/uL (0-1.3); Monocytes % (auto) 13.2 % (0.0-12.0); Neutrophils # (auto) 2.4 10 ^3/uL (1.6-8.6); Neutrophils % (auto) 55.6 % (37.0-80.0); Nucleated Red Blood Cells % 0.2 %; Red Blood Cells 4.34 10^6/uL (4.5-5.90); White Blood Cell 4.3 10^3/uL (4.4-10.8)
[2022-01-17 06:27] LABS: Albumin 3.1 g/dL (3.4-5.0); Calcium 8.8 mg/dL (8.5-10.1); Potassium 3.7 mmol/L (3.5-5.1)
[2022-01-17 06:32] LABS: BUN/Creatinine Ratio 22.2; Bilirubin, Total 0.8 mg/dL (0.2-1.0); Total Protein 6.2 g/dL (6.4-8.2)
[2022-01-17 08:00] VITALS: BP 106/61
[2022-01-17] MEDS: risperiDONE 1 MG TAB GT SCH (10:00)
[2022-01-17] MEDS: PANTOPRAZOLE 40 MG/10 ML VIAL INJ IV SCH ×2 (10:00→10:38)
[2022-01-17] MEDS: MULTIPLE VITAMIN TAB GT SCH (10:38)
[2022-01-17] MEDS: QUEtiapine FUMARATE 100 MG TAB GT SCH ×2 (10:38→21:34)
[2022-01-17] MEDS: ENOXAPARIN SOD 40 MG/0.4 ML SYRINGE SC SCH (10:39)
[2022-01-17] MEDS: LORazepam 2MG/ML-1ML VIAL IM PRN (11:37)
[2022-01-17] MEDS: diphenhdrAMINE HCL 50 MG/1 ML VL IV PRN (12:05)
[2022-01-17 17:00] VITALS: BP 106/65
[2022-01-17 20:47] VITALS: BP 112/74
[2022-01-17] MEDS: traZODone HCL 50 MG TAB GT SCH (21:34)
[2022-01-18] MEDS: FREE WATER GT SCH ×4 (00:21→18:10)
[2022-01-18] MEDS: diphenhdrAMINE HCL 50 MG/1 ML VL IV PRN ×3 (04:53→12:26)
[2022-01-18 04:59] VITALS: BP 123/74
[2022-01-18] MEDS: Jevity 1.2 Cal/Fiber 1 Liter GT SCH ×3 (05:44→22:00)
[2022-01-18] MEDS: HALOPERIDOL LACTATE 5 MG/ML INJ VIAL IM SCH ×3 (05:47→22:00)
[2022-01-18] MEDS: LEVOTHYROXINE SODIUM 50 MCG TAB GT SCH (06:09)
[2022-01-18 09:14] VITALS: BP 133/75
[2022-01-18] MEDS: PANTOPRAZOLE 40 MG/10 ML VIAL INJ IV SCH ×2 (10:00→15:51)
[2022-01-18] MEDS: ENOXAPARIN SOD 40 MG/0.4 ML SYRINGE SC SCH (12:30)
[2022-01-18] MEDS: QUEtiapine FUMARATE 100 MG TAB GT SCH ×2 (12:30→12:32)
[2022-01-18] MEDS: MULTIPLE VITAMIN TAB GT SCH (12:31)
[2022-01-18 13:18] VITALS: BP 130/66
[2022-01-18] MEDS: risperiDONE 1 MG TAB GT SCH (15:25)
[2022-01-18 17:12] VITALS: BP 104/69
[2022-01-18] MEDS: traZODone HCL 50 MG TAB GT SCH (22:00)
[2022-01-18 22:45] VITALS: BP 118/70
[2022-01-19] MEDS: FREE WATER GT SCH ×4 (00:16→18:00)
[2022-01-19 05:13] VITALS: BP 103/54
[2022-01-19] MEDS: HALOPERIDOL LACTATE 5 MG/ML INJ VIAL IM SCH ×3 (06:00→22:00)
[2022-01-19] MEDS: Jevity 1.2 Cal/Fiber 1 Liter GT SCH ×3 (06:00→22:00)
[2022-01-19] MEDS: LEVOTHYROXINE SODIUM 50 MCG TAB GT SCH (07:00)
[2022-01-19] MEDS: PANTOPRAZOLE 40 MG/10 ML VIAL INJ IV SCH ×2 (10:52→10:54)
[2022-01-19] MEDS: MULTIPLE VITAMIN TAB GT SCH (10:52)
[2022-01-19] MEDS: risperiDONE 1 MG TAB GT SCH (10:53)
[2022-01-19] MEDS: ENOXAPARIN SOD 40 MG/0.4 ML SYRINGE SC SCH (10:53)
[2022-01-19] MEDS: QUEtiapine FUMARATE 100 MG TAB GT SCH ×2 (10:53→22:00)
[2022-01-19 22:00] VITALS: BP 108/72
[2022-01-19] MEDS: traZODone HCL 50 MG TAB GT SCH (22:00)
[2022-01-20 05:00] VITALS: BP 104/69
[2022-01-20] MEDS: HALOPERIDOL LACTATE 5 MG/ML INJ VIAL IM SCH ×3 (06:24→22:00)
[2022-01-20] MEDS: Jevity 1.2 Cal/Fiber 1 Liter GT SCH ×3 (06:24→22:00)
[2022-01-20] MEDS: FREE WATER GT SCH ×4 (06:24→17:43)
[2022-01-20] MEDS: LEVOTHYROXINE SODIUM 50 MCG TAB GT SCH (06:53)
[2022-01-20] MEDS: MULTIPLE VITAMIN TAB GT SCH (09:16)
[2022-01-20] MEDS: QUEtiapine FUMARATE 100 MG TAB GT SCH ×2 (09:16→22:00)
[2022-01-20] MEDS: PANTOPRAZOLE 40 MG/10 ML VIAL INJ IV SCH (09:17)
[2022-01-20] MEDS: ENOXAPARIN SOD 40 MG/0.4 ML SYRINGE SC SCH (09:17)
[2022-01-20] MEDS: risperiDONE 1 MG TAB GT SCH (09:17)
[2022-01-20] MEDS: traZODone HCL 50 MG TAB GT SCH (22:00)
[2022-01-21] MEDS: FREE WATER GT SCH ×4 (00:18→18:09)
[2022-01-21] MEDS: Jevity 1.2 Cal/Fiber 1 Liter GT SCH ×3 (06:04→21:52)
[2022-01-21] MEDS: HALOPERIDOL LACTATE 5 MG/ML INJ VIAL IM SCH ×3 (06:05→21:53)
[2022-01-21] MEDS: LEVOTHYROXINE SODIUM 50 MCG TAB GT SCH (08:58)
[2022-01-21] MEDS: PANTOPRAZOLE 40 MG/10 ML VIAL INJ IV SCH (09:01)
[2022-01-21] MEDS: QUEtiapine FUMARATE 100 MG TAB GT SCH ×2 (09:02→21:52)
[2022-01-21] MEDS: ENOXAPARIN SOD 40 MG/0.4 ML SYRINGE SC SCH (09:02)
[2022-01-21] MEDS: MULTIPLE VITAMIN TAB GT SCH (09:02)
[2022-01-21] MEDS: risperiDONE 1 MG TAB GT SCH (09:03)
[2022-01-21 09:42] LABS: Basophils # (auto) 0 10 ^3/uL (0-0.2); Basophils % (auto) 0.5 % (0.0-2.0); Eosinophils # (auto) 0.2 10 ^3/uL (0-0.8); Hematocrit 39.1 % (41.0-53.0); Hemoglobin 13.8 g/dL (13.5-17.5); Lymphocytes # (auto) 1.2 10 ^3/uL (0.4-5.4); Lymphocytes % (auto) 23.2 % (10.0-50.0); Mean Corpuscular Hemoglobin 31.8 pg (28.0-32.0); Mean Corpuscular Hgb Conc. 35.4 g/dL (32.0-36.0); Monocytes # (auto) 0.6 10 ^3/uL (0-1.3); Neutrophils # (auto) 3.1 10 ^3/uL (1.6-8.6); Neutrophils % (auto) 61.3 % (37.0-80.0); Nucleated Red Blood Cells % 0.3 %; Red Blood Cells 4.35 10^6/uL (4.5-5.90); Red Cell Distribution Width 13.6 % (11.8-14.3); White Blood Cell 5.1 10^3/uL (4.4-10.8)
[2022-01-21 17:08] LABS: Albumin 2.7 g/dL (3.4-5.0); BUN/Creatinine Ratio 33.8; Potassium 3.7 mmol/L (3.5-5.1)
[2022-01-21 17:11] LABS: Bilirubin, Total 0.7 mg/dL (0.2-1.0); Total Protein 5.6 g/dL (6.4-8.2)
[2022-01-21] MEDS: traZODone HCL 50 MG TAB GT SCH (21:51)
[2022-01-21 22:00] VITALS: BP 95/56
[2022-01-22 05:00] VITALS: BP 112/57
[2022-01-22] MEDS: Jevity 1.2 Cal/Fiber 1 Liter GT SCH ×3 (06:00→22:00)
[2022-01-22] MEDS: HALOPERIDOL LACTATE 5 MG/ML INJ VIAL IM SCH ×3 (06:00→22:00)
[2022-01-22] MEDS: FREE WATER GT SCH ×3 (06:00→12:00)
[2022-01-22] MEDS: LEVOTHYROXINE SODIUM 50 MCG TAB GT SCH (06:32)
[2022-01-22 07:49] LABS: Basophils # (auto) 0 10 ^3/uL (0-0.2); Basophils % (auto) 0.6 % (0.0-2.0); Eosinophils # (auto) 0.1 10 ^3/uL (0-0.8); Eosinophils % (auto) 2.8 % (0.0-7.0); Hematocrit 38.8 % (41.0-53.0); Lymphocytes # (auto) 1.5 10 ^3/uL (0.4-5.4); Lymphocytes % (auto) 27.9 % (10.0-50.0); Mean Corpuscular Hemoglobin 32.4 pg (28.0-32.0); Mean Corpuscular Volume 89.9 fL (80.0-100.0); Monocytes # (auto) 0.4 10 ^3/uL (0-1.3); Monocytes % (auto) 8.2 % (0.0-12.0); Neutrophils # (auto) 3.1 10 ^3/uL (1.6-8.6); Neutrophils % (auto) 60.5 % (37.0-80.0); Nucleated Red Blood Cells % 0.3 %; Red Blood Cells 4.31 10^6/uL (4.5-5.90); Red Cell Distribution Width 13.5 % (11.8-14.3); White Blood Cell 5.2 10^3/uL (4.4-10.8)
[2022-01-22 08:10] LABS: Albumin 2.7 g/dL (3.4-5.0); Anion Gap 6 (5-15); BUN/Creatinine Ratio 26.6; Blood Urea Nitrogen 21 mg/dL (7-18); Carbon Dioxide 29 mmol/L (21-32); Chloride 96 mmol/L (98-107); GFR African American 140 mL/min; GFR Non-African American 115 mL/min; Glucose 147 mg/dL (74-106); Potassium 4.1 mmol/L (3.5-5.1); Sodium 131 mmol/L (136-145)
[2022-01-22 08:15] LABS: Alanine Aminotransferase 67 U/L (16-61); Alkaline Phosphatase 78 U/L (45-117); Aspartate Aminotransferase 76 U/L (15-37); Bilirubin, Total 0.7 mg/dL (0.2-1.0); Total Protein 5.8 g/dL (6.4-8.2)
[2022-01-22 09:00] VITALS: BP 88/54
[2022-01-22] MEDS: ENOXAPARIN SOD 40 MG/0.4 ML SYRINGE SC SCH (09:12)
[2022-01-22] MEDS: MULTIPLE VITAMIN TAB GT SCH (09:12)
[2022-01-22] MEDS: QUEtiapine FUMARATE 100 MG TAB GT SCH ×2 (09:12→22:00)
[2022-01-22] MEDS: PANTOPRAZOLE 40 MG/10 ML VIAL INJ IV SCH (09:13)
[2022-01-22] MEDS: risperiDONE 1 MG TAB GT SCH (09:14)
[2022-01-22 13:00] VITALS: BP 95/58
[2022-01-22 17:00] VITALS: BP 99/67
[2022-01-22 22:00] VITALS: BP 91/53
[2022-01-22] MEDS: traZODone HCL 50 MG TAB GT SCH (22:00)
[2022-01-23] MEDS: diphenhdrAMINE HCL 50 MG/1 ML VL IV PRN (01:44)
[2022-01-23 05:00] VITALS: BP 107/59
[2022-01-23] MEDS: FREE WATER GT SCH ×4 (06:00→18:00)
[2022-01-23] MEDS: HALOPERIDOL LACTATE 5 MG/ML INJ VIAL IM SCH ×3 (06:29→22:20)
[2022-01-23] MEDS: Jevity 1.2 Cal/Fiber 1 Liter GT SCH ×3 (06:29→22:21)
[2022-01-23] MEDS: LEVOTHYROXINE SODIUM 50 MCG TAB GT SCH (06:30)
[2022-01-23 07:59] VITALS: BP 104/65
[2022-01-23] MEDS: QUEtiapine FUMARATE 100 MG TAB GT SCH ×2 (10:30→22:21)
[2022-01-23] MEDS: PANTOPRAZOLE 40 MG/10 ML VIAL INJ IV SCH (10:30)
[2022-01-23] MEDS: ENOXAPARIN SOD 40 MG/0.4 ML SYRINGE SC SCH (10:30)
[2022-01-23] MEDS: risperiDONE 1 MG TAB GT SCH (10:30)
[2022-01-23] MEDS: MULTIPLE VITAMIN TAB GT SCH (10:30)
[2022-01-23 17:00] VITALS: BP 100/64
[2022-01-23 22:00] VITALS: BP 100/56
[2022-01-23] MEDS: traZODone HCL 50 MG TAB GT SCH (22:21)
[2022-01-24 05:00] VITALS: BP 104/68
[2022-01-24] MEDS: Jevity 1.2 Cal/Fiber 1 Liter GT SCH ×3 (06:07→22:58)
[2022-01-24] MEDS: HALOPERIDOL LACTATE 5 MG/ML INJ VIAL IM SCH ×2 (06:07→14:32)
[2022-01-24] MEDS: LEVOTHYROXINE SODIUM 50 MCG TAB GT SCH (06:08)
[2022-01-24] MEDS: FREE WATER GT SCH ×4 (06:08→17:52)
[2022-01-24 09:00] VITALS: BP 90/59
[2022-01-24] MEDS: risperiDONE 1 MG TAB GT SCH (11:06)
[2022-01-24] MEDS: QUEtiapine FUMARATE 100 MG TAB GT SCH ×2 (11:06→22:58)
[2022-01-24] MEDS: MULTIPLE VITAMIN TAB GT SCH (11:06)
[2022-01-24] MEDS: ENOXAPARIN SOD 40 MG/0.4 ML SYRINGE SC SCH (11:07)
[2022-01-24] MEDS: PANTOPRAZOLE 40 MG/10 ML VIAL INJ IV SCH (12:03)
[2022-01-24 13:00] VITALS: BP 102/59
[2022-01-24 14:21] LABS: Basophils # (auto) 0 10 ^3/uL (0-0.2); Basophils % (auto) 0.3 % (0.0-2.0); Eosinophils # (auto) 0 10 ^3/uL (0-0.8); Eosinophils % (auto) 0.5 % (0.0-7.0); Hematocrit 38.3 % (41.0-53.0); Hemoglobin 13.5 g/dL (13.5-17.5); Lymphocytes # (auto) 0.5 10 ^3/uL (0.4-5.4); Lymphocytes % (auto) 9.6 % (10.0-50.0); Mean Corpuscular Hgb Conc. 35.2 g/dL (32.0-36.0); Mean Corpuscular Volume 90.9 fL (80.0-100.0); Monocytes # (auto) 0.6 10 ^3/uL (0-1.3); Monocytes % (auto) 9.9 % (0.0-12.0); Neutrophils # (auto) 4.5 10 ^3/uL (1.6-8.6); Neutrophils % (auto) 79.7 % (37.0-80.0); Nucleated Red Blood Cells % 0.2 %; Red Blood Cells 4.21 10^6/uL (4.5-5.90); Red Cell Distribution Width 13.9 % (11.8-14.3); White Blood Cell 5.7 10^3/uL (4.4-10.8)
[2022-01-24] MEDS ORDERED: HALOPERIDOL LACTATE 5 MG/ML INJ VIAL IM SCH (14:30)
[2022-01-24 14:39] LABS: Albumin 2.6 g/dL (3.4-5.0); BUN/Creatinine Ratio 25.8; Calcium 8.6 mg/dL (8.5-10.1); Potassium 4.3 mmol/L (3.5-5.1)
[2022-01-24 14:42] LABS: Bilirubin, Total 0.9 mg/dL (0.2-1.0); Total Protein 5.6 g/dL (6.4-8.2)
[2022-01-24] MEDS ORDERED: HALOPERIDOL LACTATE 5 MG/ML INJ VIAL IM PRN (16:15)
[2022-01-24 17:00] VITALS: BP 93/59
[2022-01-24 20:50] VITALS: BP 122/70
[2022-01-24] MEDS: traZODone HCL 50 MG TAB GT SCH (22:59)
[2022-01-25] MEDS: FREE WATER GT SCH ×4 (04:55→18:00)
[2022-01-25 05:00] VITALS: BP 97/54
[2022-01-25] MEDS: Jevity 1.2 Cal/Fiber 1 Liter GT SCH ×3 (06:30→22:33)
[2022-01-25] MEDS: LEVOTHYROXINE SODIUM 50 MCG TAB GT SCH (06:30)
[2022-01-25 08:09] VITALS: BP 92/55
[2022-01-25] MEDS ORDERED: GASTROGRAFIN 30 ML SOL ONE (09:55)
[2022-01-25] MEDS: MULTIPLE VITAMIN TAB GT SCH (11:19)
[2022-01-25] MEDS: risperiDONE 1 MG TAB GT SCH (11:19)
[2022-01-25] MEDS: QUEtiapine FUMARATE 100 MG TAB GT SCH ×2 (11:19→22:32)
[2022-01-25] MEDS: PANTOPRAZOLE 40 MG/10 ML VIAL INJ IV SCH (11:19)
[2022-01-25] MEDS: cefTRIAXone 1GM/50ML D5W 50 ML IV SCH (11:19)
[2022-01-25 12:00] VITALS: BP 93/57
[2022-01-25] MEDS: ENOXAPARIN SOD 40 MG/0.4 ML SYRINGE SC SCH (12:13)
[2022-01-25 17:00] VITALS: BP 92/58
[2022-01-25 21:00] VITALS: BP 95/66
[2022-01-25] MEDS: traZODone HCL 50 MG TAB GT SCH (22:32)
[2022-01-25] MEDS: D5W/SOD CHL 0.45% 1,000 ML IV SCH (22:33)
[2022-01-26 04:30] VITALS: BP 103/62
[2022-01-26] MEDS: diphenhdrAMINE HCL 50 MG/1 ML VL IV PRN (05:22)
[2022-01-26] MEDS: Jevity 1.2 Cal/Fiber 1 Liter GT SCH ×3 (06:00→21:45)
[2022-01-26] MEDS: FREE WATER GT SCH ×4 (06:00→17:15)
[2022-01-26] MEDS: LEVOTHYROXINE SODIUM 50 MCG TAB GT SCH (06:06)
[2022-01-26 09:00] VITALS: BP 103/63
[2022-01-26] MEDS: ENOXAPARIN SOD 40 MG/0.4 ML SYRINGE SC SCH (09:09)
[2022-01-26] MEDS: cefTRIAXone 1GM/50ML D5W 50 ML IV SCH (09:09)
[2022-01-26] MEDS: PANTOPRAZOLE 40 MG/10 ML VIAL INJ IV SCH (09:09)
[2022-01-26] MEDS: D5W/SOD CHL 0.45% 1,000 ML IV SCH (11:20)
[2022-01-26] MEDS: MULTIPLE VITAMIN TAB GT SCH (12:54)
[2022-01-26] MEDS: QUEtiapine FUMARATE 100 MG TAB GT SCH ×2 (12:55→22:50)
[2022-01-26] MEDS: BACITRACIN TOP OINT 1 UD PKG TOP SCH ×2 (12:55→22:50)
[2022-01-26] MEDS: risperiDONE 1 MG TAB GT SCH (12:55)
[2022-01-26 13:00] VITALS: BP 95/47
[2022-01-26 17:00] VITALS: BP 116/71
[2022-01-26] MEDS: TEMAZEPAM 15 MG CAP GT PRN (22:50)
[2022-01-26] MEDS: traZODone HCL 50 MG TAB GT SCH (22:50)
[2022-01-26] MEDS: LORazepam 2MG/ML-1ML VIAL IM PRN (23:27)
[2022-01-27] MEDS: FREE WATER GT SCH ×4 (02:32→17:31)
[2022-01-27] MEDS: D5W/SOD CHL 0.45% 1,000 ML IV SCH ×2 (02:32→14:17)
[2022-01-27] MEDS: Jevity 1.2 Cal/Fiber 1 Liter GT SCH ×3 (06:07→21:45)
[2022-01-27] MEDS: LEVOTHYROXINE SODIUM 50 MCG TAB GT SCH (06:08)
[2022-01-27 09:00] VITALS: BP 81/46
[2022-01-27] MEDS: QUEtiapine FUMARATE 100 MG TAB GT SCH ×2 (11:01→21:45)
[2022-01-27] MEDS: BACITRACIN TOP OINT 1 UD PKG TOP SCH ×2 (11:01→21:46)
[2022-01-27] MEDS: PANTOPRAZOLE 40 MG/10 ML VIAL INJ IV SCH (11:01)
[2022-01-27] MEDS: cefTRIAXone 1GM/50ML D5W 50 ML IV SCH (11:02)
[2022-01-27] MEDS: MULTIPLE VITAMIN TAB GT SCH (11:02)
[2022-01-27] MEDS: risperiDONE 1 MG TAB GT SCH (11:02)
[2022-01-27] MEDS ORDERED: ATROPINE SULFATE 0.4 MG/1 ML VIAL IV ONE (11:15)
[2022-01-27] MEDS ORDERED: SODIUM CHLORIDE 0.9% 500 ML IV ONE (11:15)
[2022-01-27 13:00] VITALS: BP 109/57
[2022-01-27 17:00] VITALS: BP 127/71
[2022-01-27] MEDS: traZODone HCL 50 MG TAB GT SCH (21:45)
[2022-01-27 22:00] VITALS: BP 125/62
[2022-01-28] MEDS: FREE WATER GT SCH ×4 (00:04→17:11)
[2022-01-28] MEDS: D5W/SOD CHL 0.45% 1,000 ML IV SCH ×2 (03:20→17:10)
[2022-01-28 05:01] VITALS: BP 124/76
[2022-01-28 05:34] LABS: Basophils # (auto) 0 10 ^3/uL (0-0.2); Basophils % (auto) 1.1 % (0.0-2.0); Eosinophils # (auto) 0.1 10 ^3/uL (0-0.8); Hematocrit 37.8 % (41.0-53.0); Hemoglobin 13.6 g/dL (13.5-17.5); Lymphocytes # (auto) 1.1 10 ^3/uL (0.4-5.4); Lymphocytes % (auto) 36.2 % (10.0-50.0); Mean Corpuscular Hemoglobin 32.8 pg (28.0-32.0); Mean Corpuscular Hgb Conc. 36.1 g/dL (32.0-36.0); Mean Corpuscular Volume 90.9 fL (80.0-100.0); Monocytes # (auto) 0.5 10 ^3/uL (0-1.3); Monocytes % (auto) 15.2 % (0.0-12.0); Neutrophils # (auto) 1.4 10 ^3/uL (1.6-8.6); Neutrophils % (auto) 43.5 % (37.0-80.0); Nucleated Red Blood Cells % 0.3 %; Red Blood Cells 4.16 10^6/uL (4.5-5.90); Red Cell Distribution Width 14.3 % (11.8-14.3); White Blood Cell 3.2 10^3/uL (4.4-10.8)
[2022-01-28] MEDS: Jevity 1.2 Cal/Fiber 1 Liter GT SCH ×3 (05:49→21:29)
[2022-01-28] MEDS: LEVOTHYROXINE SODIUM 50 MCG TAB GT SCH (05:50)
[2022-01-28 06:00] LABS: Potassium 4.2 mmol/L (3.5-5.1)
[2022-01-28 06:13] LABS: Albumin 2.6 g/dL (3.4-5.0); BUN/Creatinine Ratio 22.9; Bilirubin, Total 0.7 mg/dL (0.2-1.0); Calcium 8.2 mg/dL (8.5-10.1); Total Protein 5.8 g/dL (6.4-8.2)
[2022-01-28 08:32] VITALS: BP 109/69
[2022-01-28] MEDS: risperiDONE 1 MG TAB GT SCH (09:35)
[2022-01-28] MEDS: MULTIPLE VITAMIN TAB GT SCH (09:35)
[2022-01-28] MEDS: cefTRIAXone 1GM/50ML D5W 50 ML IV SCH (09:35)
[2022-01-28] MEDS: BACITRACIN TOP OINT 1 UD PKG TOP SCH ×2 (09:36→22:01)
[2022-01-28] MEDS: QUEtiapine FUMARATE 100 MG TAB GT SCH ×2 (09:36→21:27)
[2022-01-28] MEDS: PANTOPRAZOLE 40 MG/10 ML VIAL INJ IV SCH (11:08)
[2022-01-28 12:39] VITALS: BP 115/81
[2022-01-28] MEDS ORDERED: FLEET ENEMA(ADULT) 135 ML PR ONE (16:15)
[2022-01-28 16:48] VITALS: BP 94/62
[2022-01-28] MEDS: traZODone HCL 50 MG TAB GT SCH (21:27)
[2022-01-28 22:00] VITALS: BP 109/66
[2022-01-29 04:50] VITALS: BP 120/71
[2022-01-29] MEDS: LEVOTHYROXINE SODIUM 50 MCG TAB GT SCH ×2 (07:00→20:37)
[2022-01-29 08:00] VITALS: BP 118/70
[2022-01-29 09:00] VITALS: BP 118/70
[2022-01-29] MEDS: risperiDONE 1 MG TAB GT SCH (10:00)
[2022-01-29] MEDS: QUEtiapine FUMARATE 100 MG TAB GT SCH ×2 (10:00→20:37)
[2022-01-29] MEDS: MULTIPLE VITAMIN TAB GT SCH (10:00)
[2022-01-29] MEDS: cefTRIAXone 1GM/50ML D5W 50 ML IV SCH (11:16)
[2022-01-29] MEDS: PANTOPRAZOLE 40 MG/10 ML VIAL INJ IV SCH (11:21)
[2022-01-29] MEDS: BACITRACIN TOP OINT 1 UD PKG TOP SCH ×2 (11:22→22:41)
[2022-01-29] MEDS: FREE WATER GT SCH ×5 (12:00→20:39)
[2022-01-29] MEDS: Jevity 1.2 Cal/Fiber 1 Liter GT SCH ×3 (14:00→20:39)
[2022-01-29 17:00] VITALS: BP 128/41
[2022-01-29] MEDS: D5W/SOD CHL 0.45% 1,000 ML IV SCH (20:16)
[2022-01-29] MEDS: traZODone HCL 50 MG TAB GT SCH (20:36)
[2022-01-29 22:00] VITALS: BP 121/53
[2022-01-30 05:00] VITALS: BP 97/68
[2022-01-30] MEDS: FREE WATER GT SCH ×2 (12:02→18:43)
[2022-01-30] MEDS: PANTOPRAZOLE 40 MG/10 ML VIAL INJ IV SCH (12:03)
[2022-01-30] MEDS: BACITRACIN TOP OINT 1 UD PKG TOP SCH ×2 (12:03→22:18)
[2022-01-30] MEDS: QUEtiapine FUMARATE 100 MG TAB GT SCH ×2 (12:03→22:18)
[2022-01-30] MEDS: D5W/SOD CHL 0.45% 1,000 ML IV SCH ×2 (12:04→22:58)
[2022-01-30] MEDS: MULTIPLE VITAMIN TAB GT SCH (12:04)
[2022-01-30] MEDS: risperiDONE 1 MG TAB GT SCH (12:04)
[2022-01-30] MEDS: cefTRIAXone 1GM/50ML D5W 50 ML IV SCH (12:04)
[2022-01-30 13:00] VITALS: BP 114/86
[2022-01-30] MEDS: Jevity 1.2 Cal/Fiber 1 Liter GT SCH (14:00)
[2022-01-30 17:00] VITALS: BP 125/52
[2022-01-30 18:30] VITALS: BP 104/64
[2022-01-30 22:00] VITALS: BP 104/64
[2022-01-30] MEDS: traZODone HCL 50 MG TAB GT SCH (22:18)
[2022-01-31] MEDS: FREE WATER GT SCH ×4 (00:05→18:27)
[2022-01-31] MEDS: Jevity 1.2 Cal/Fiber 1 Liter GT SCH ×3 (04:57→16:35)
[2022-01-31 05:00] VITALS: BP 126/77
[2022-01-31] MEDS: LEVOTHYROXINE SODIUM 50 MCG TAB GT SCH (06:51)
[2022-01-31 09:00] VITALS: BP 126/62
[2022-01-31] MEDS: MULTIPLE VITAMIN TAB GT SCH (10:10)
[2022-01-31] MEDS: cefTRIAXone 1GM/50ML D5W 50 ML IV SCH (10:10)
[2022-01-31] MEDS: QUEtiapine FUMARATE 100 MG TAB GT SCH (10:11)
[2022-01-31] MEDS: PANTOPRAZOLE 40 MG/10 ML VIAL INJ IV SCH (10:11)
[2022-01-31] MEDS: BACITRACIN TOP OINT 1 UD PKG TOP SCH (10:11)
[2022-01-31] MEDS: risperiDONE 1 MG TAB GT SCH (10:17)
[2022-01-31] MEDS: D5W/SOD CHL 0.45% 1,000 ML IV SCH (11:50)
[2022-01-31 13:00] VITALS: BP 103/42
[2022-01-31] MEDS: diphenhdrAMINE HCL 50 MG/1 ML VL IV PRN (14:00)
[2022-01-31 22:00] VITALS: BP 128/71
[2022-01-31] MEDS: TEMAZEPAM 15 MG CAP GT PRN (22:10)
[2022-02-01] MEDS: traZODone HCL 50 MG TAB GT SCH ×2 (04:13→21:53)
[2022-02-01] MEDS: LORazepam 2MG/ML-1ML VIAL IM PRN ×2 (04:13→14:27)
[2022-02-01] MEDS: BACITRACIN TOP OINT 1 UD PKG TOP SCH ×3 (04:14→21:53)
[2022-02-01] MEDS: QUEtiapine FUMARATE 100 MG TAB GT SCH ×3 (04:14→21:53)
[2022-02-01] MEDS: Jevity 1.2 Cal/Fiber 1 Liter GT SCH ×5 (04:14→21:53)
[2022-02-01] MEDS: FREE WATER GT SCH ×4 (04:15→18:16)
[2022-02-01] MEDS: D5W/SOD CHL 0.45% 1,000 ML IV SCH ×2 (04:15→14:17)
[2022-02-01 05:00] VITALS: BP 148/83
[2022-02-01] MEDS: LEVOTHYROXINE SODIUM 50 MCG TAB GT SCH (07:20)
[2022-02-01] MEDS: cefTRIAXone 1GM/50ML D5W 50 ML IV SCH (09:18)
[2022-02-01] MEDS: MULTIPLE VITAMIN TAB GT SCH (09:18)
[2022-02-01] MEDS: PANTOPRAZOLE 40 MG/10 ML VIAL INJ IV SCH (09:19)
[2022-02-01] MEDS: risperiDONE 1 MG TAB GT SCH (09:50)
[2022-02-01 13:00] VITALS: BP 106/50
[2022-02-01 17:00] VITALS: BP 99/57
[2022-02-01] MEDS: diphenhdrAMINE HCL 50 MG/1 ML VL IV PRN (18:17)
[2022-02-01] MEDS: TEMAZEPAM 15 MG CAP GT PRN (22:14)
[2022-02-02] MEDS: FREE WATER GT SCH ×4 (01:15→18:00)
[2022-02-02] MEDS: D5W/SOD CHL 0.45% 1,000 ML IV SCH ×2 (03:20→16:40)
[2022-02-02] MEDS: Jevity 1.2 Cal/Fiber 1 Liter GT SCH ×4 (03:21→22:00)
[2022-02-02] MEDS: LEVOTHYROXINE SODIUM 50 MCG TAB GT SCH (07:00)
[2022-02-02] MEDS: diphenhdrAMINE HCL 50 MG/1 ML VL IV PRN (08:07)
[2022-02-02 08:49] VITALS: BP 131/88
[2022-02-02] MEDS: risperiDONE 1 MG TAB GT SCH (11:07)
[2022-02-02] MEDS: MULTIPLE VITAMIN TAB GT SCH (11:07)
[2022-02-02] MEDS: cefTRIAXone 1GM/50ML D5W 50 ML IV SCH (11:07)
[2022-02-02] MEDS: PANTOPRAZOLE 40 MG/10 ML VIAL INJ IV SCH (11:08)
[2022-02-02] MEDS: QUEtiapine FUMARATE 100 MG TAB GT SCH ×2 (11:08→22:00)
[2022-02-02] MEDS: BACITRACIN TOP OINT 1 UD PKG TOP SCH ×2 (11:08→22:27)
[2022-02-02 13:00] VITALS: BP 116/62
[2022-02-02] MEDS ORDERED: GASTROGRAFIN 30 ML SOL ONE (16:46)
[2022-02-02 17:00] VITALS: BP 112/92
[2022-02-02 22:00] VITALS: BP 106/75
[2022-02-02] MEDS: traZODone HCL 50 MG TAB GT SCH (22:00)
[2022-02-03] MEDS: Jevity 1.2 Cal/Fiber 1 Liter GT SCH ×4 (04:00→21:46)
[2022-02-03 05:00] VITALS: BP 122/79
[2022-02-03] MEDS: D5W/SOD CHL 0.45% 1,000 ML IV SCH ×2 (05:29→21:45)
[2022-02-03] MEDS: FREE WATER GT SCH ×5 (06:00→23:31)
[2022-02-03] MEDS: LEVOTHYROXINE SODIUM 50 MCG TAB GT SCH (06:53)
[2022-02-03 08:00] VITALS: BP 115/74
[2022-02-03] MEDS: cefTRIAXone 1GM/50ML D5W 50 ML IV SCH (08:45)
[2022-02-03] MEDS: diphenhdrAMINE HCL 50 MG/1 ML VL IV PRN (08:45)
[2022-02-03 09:16] LABS: Basophils # (auto) 0 10 ^3/uL (0-0.2); Basophils % (auto) 0.2 % (0.0-2.0); Eosinophils # (auto) 0 10 ^3/uL (0-0.8); Eosinophils % (auto) 1.5 % (0.0-7.0); Hematocrit 36.2 % (41.0-53.0); Lymphocytes # (auto) 0.6 10 ^3/uL (0.4-5.4); Mean Corpuscular Hemoglobin 32.3 pg (28.0-32.0); Mean Corpuscular Hgb Conc. 35.9 g/dL (32.0-36.0); Mean Corpuscular Volume 89.9 fL (80.0-100.0); Monocytes # (auto) 0.4 10 ^3/uL (0-1.3); Monocytes % (auto) 11.7 % (0.0-12.0); Neutrophils # (auto) 2.1 10 ^3/uL (1.6-8.6); Neutrophils % (auto) 66.6 % (37.0-80.0); Nucleated Red Blood Cells % 0.3 %; Red Blood Cells 4.03 10^6/uL (4.5-5.90); Red Cell Distribution Width 14.7 % (11.8-14.3); White Blood Cell 3.2 10^3/uL (4.4-10.8)
[2022-02-03 09:33] LABS: INR 1.1 (0.9-1.15); Partial Thromboplastin Time 35.3 sec (23.6-33.0)
[2022-02-03 09:35] LABS: Albumin 2.7 g/dL (3.4-5.0); Calcium 8.5 mg/dL (8.5-10.1); Potassium 3.8 mmol/L (3.5-5.1)
[2022-02-03 09:39] LABS: BUN/Creatinine Ratio 26.1; Bilirubin, Total 0.6 mg/dL (0.2-1.0); Total Protein 5.7 g/dL (6.4-8.2)
[2022-02-03] MEDS: QUEtiapine FUMARATE 100 MG TAB GT SCH ×2 (12:30→21:45)
[2022-02-03] MEDS: PANTOPRAZOLE 40 MG/10 ML VIAL INJ IV SCH (12:30)
[2022-02-03] MEDS: risperiDONE 1 MG TAB GT SCH (12:30)
[2022-02-03] MEDS: BACITRACIN TOP OINT 1 UD PKG TOP SCH ×2 (12:30→21:47)
[2022-02-03] MEDS: MULTIPLE VITAMIN TAB GT SCH (12:30)
[2022-02-03 13:00] VITALS: BP 105/55
[2022-02-03] MEDS: traZODone HCL 50 MG TAB GT SCH (21:46)
[2022-02-03 22:00] VITALS: BP 141/68
[2022-02-03] MEDS: HALOPERIDOL LACTATE 5 MG/ML INJ VIAL IM PRN (22:00)
[2022-02-04] MEDS: Jevity 1.2 Cal/Fiber 1 Liter GT SCH ×4 (04:24→21:52)
[2022-02-04 05:00] VITALS: BP 125/79
[2022-02-04] MEDS: FREE WATER GT SCH ×3 (06:02→17:39)
[2022-02-04] MEDS: LEVOTHYROXINE SODIUM 50 MCG TAB GT SCH (06:17)
[2022-02-04] MEDS: D5W/SOD CHL 0.45% 1,000 ML IV SCH (08:40)
[2022-02-04] MEDS: cefTRIAXone 1GM/50ML D5W 50 ML IV SCH (09:11)
[2022-02-04] MEDS: MULTIPLE VITAMIN TAB GT SCH (09:12)
[2022-02-04] MEDS: risperiDONE 1 MG TAB GT SCH (09:12)
[2022-02-04] MEDS: QUEtiapine FUMARATE 100 MG TAB GT SCH ×2 (09:12→21:52)
[2022-02-04] MEDS: PANTOPRAZOLE 40 MG/10 ML VIAL INJ IV SCH (09:13)
[2022-02-04] MEDS: BACITRACIN TOP OINT 1 UD PKG TOP SCH ×2 (09:13→21:51)
[2022-02-04 09:25] VITALS: BP 121/74
[2022-02-04 12:36] VITALS: BP 120/79
[2022-02-04 16:39] VITALS: BP 111/84
[2022-02-04 21:30] VITALS: BP 110/80
[2022-02-04] MEDS: traZODone HCL 50 MG TAB GT SCH (21:51)
[2022-02-05] MEDS: FREE WATER GT SCH ×5 (03:44→23:45)
[2022-02-05] MEDS: Jevity 1.2 Cal/Fiber 1 Liter GT SCH ×4 (04:22→22:00)
[2022-02-05 05:00] VITALS: BP 107/74
[2022-02-05] MEDS: D5W/SOD CHL 0.45% 1,000 ML IV SCH ×2 (05:05→11:20)
[2022-02-05] MEDS: LEVOTHYROXINE SODIUM 50 MCG TAB GT SCH (06:28)
[2022-02-05 09:00] VITALS: BP 110/75
[2022-02-05] MEDS: cefTRIAXone 1GM/50ML D5W 50 ML IV SCH (09:20)
[2022-02-05] MEDS: MULTIPLE VITAMIN TAB GT SCH (09:21)
[2022-02-05] MEDS: PANTOPRAZOLE 40 MG/10 ML VIAL INJ IV SCH (09:21)
[2022-02-05] MEDS: QUEtiapine FUMARATE 100 MG TAB GT SCH ×2 (09:21→23:44)
[2022-02-05] MEDS: BACITRACIN TOP OINT 1 UD PKG TOP SCH ×2 (09:21→22:00)
[2022-02-05] MEDS: risperiDONE 1 MG TAB GT SCH (09:32)
[2022-02-05 13:00] VITALS: BP 111/79
[2022-02-05 17:00] VITALS: BP 111/71
[2022-02-05 22:00] VITALS: BP 105/58
[2022-02-05] MEDS: traZODone HCL 50 MG TAB GT SCH (23:44)
[2022-02-06] MEDS: Jevity 1.2 Cal/Fiber 1 Liter GT SCH ×4 (04:00→22:38)
[2022-02-06 05:00] VITALS: BP 122/68
[2022-02-06] MEDS: FREE WATER GT SCH ×3 (06:00→18:00)
[2022-02-06] MEDS: LEVOTHYROXINE SODIUM 50 MCG TAB GT SCH (06:43)
[2022-02-06 09:00] VITALS: BP 116/77
[2022-02-06] MEDS: PANTOPRAZOLE 40 MG/10 ML VIAL INJ IV SCH (10:23)
[2022-02-06] MEDS: MULTIPLE VITAMIN TAB GT SCH (10:24)
[2022-02-06] MEDS: risperiDONE 1 MG TAB GT SCH (10:24)
[2022-02-06] MEDS: BACITRACIN TOP OINT 1 UD PKG TOP SCH ×2 (10:24→22:39)
[2022-02-06] MEDS: QUEtiapine FUMARATE 100 MG TAB GT SCH ×2 (10:24→22:38)
[2022-02-06 13:00] VITALS: BP 121/64
[2022-02-06 16:50] VITALS: BP 107/74
[2022-02-06 20:00] VITALS: BP 133/89
[2022-02-06 22:00] VITALS: BP 133/89
[2022-02-06] MEDS: traZODone HCL 50 MG TAB GT SCH (22:38)
[2022-02-07] MEDS: FREE WATER GT SCH ×5 (00:27→23:54)
[2022-02-07] MEDS: Jevity 1.2 Cal/Fiber 1 Liter GT SCH ×4 (03:55→22:16)
[2022-02-07 05:00] VITALS: BP 94/63
[2022-02-07] MEDS: LEVOTHYROXINE SODIUM 50 MCG TAB GT SCH (06:59)
[2022-02-07 08:20] VITALS: BP 105/80
[2022-02-07] MEDS: MULTIPLE VITAMIN TAB GT SCH (10:17)
[2022-02-07] MEDS: QUEtiapine FUMARATE 100 MG TAB GT SCH ×2 (10:18→22:16)
[2022-02-07] MEDS: BACITRACIN TOP OINT 1 UD PKG TOP SCH ×2 (10:18→22:16)
[2022-02-07] MEDS: PANTOPRAZOLE 40 MG/10 ML VIAL INJ IV SCH (10:18)
[2022-02-07] MEDS: risperiDONE 1 MG TAB GT SCH (10:25)
[2022-02-07 12:22] VITALS: BP 114/89
[2022-02-07 17:02] VITALS: BP 115/88
[2022-02-07 20:00] VITALS: BP 135/72
[2022-02-07 22:00] VITALS: BP 135/72
[2022-02-07] MEDS: traZODone HCL 50 MG TAB GT SCH (22:16)
[2022-02-08] MEDS: Jevity 1.2 Cal/Fiber 1 Liter GT SCH ×4 (04:20→21:37)
[2022-02-08 04:59] VITALS: BP 110/63
[2022-02-08] MEDS: FREE WATER GT SCH ×3 (06:14→17:46)
[2022-02-08] MEDS: LEVOTHYROXINE SODIUM 50 MCG TAB GT SCH (06:38)
[2022-02-08 09:00] VITALS: BP 118/67
[2022-02-08] MEDS: risperiDONE 1 MG TAB GT SCH (09:26)
[2022-02-08] MEDS: MULTIPLE VITAMIN TAB GT SCH (09:26)
[2022-02-08] MEDS: QUEtiapine FUMARATE 100 MG TAB GT SCH ×2 (09:26→21:37)
[2022-02-08] MEDS: BACITRACIN TOP OINT 1 UD PKG TOP SCH ×2 (09:27→21:37)
[2022-02-08] MEDS: PANTOPRAZOLE 40 MG/10 ML VIAL INJ IV SCH (09:27)
[2022-02-08 17:00] VITALS: BP 104/64
[2022-02-08] MEDS: traZODone HCL 50 MG TAB GT SCH (21:37)
[2022-02-08 22:00] VITALS: BP 99/63
[2022-02-09] MEDS: FREE WATER GT SCH ×4 (03:05→18:00)
[2022-02-09] MEDS: Jevity 1.2 Cal/Fiber 1 Liter GT SCH ×4 (04:30→22:13)
[2022-02-09 05:00] VITALS: BP 133/54
[2022-02-09] MEDS: LEVOTHYROXINE SODIUM 50 MCG TAB GT SCH (07:00)
[2022-02-09 09:00] VITALS: BP 100/65
[2022-02-09] MEDS: QUEtiapine FUMARATE 100 MG TAB GT SCH ×2 (10:00→22:13)
[2022-02-09] MEDS: risperiDONE 1 MG TAB GT SCH (10:00)
[2022-02-09] MEDS: PANTOPRAZOLE 40 MG/10 ML VIAL INJ IV SCH (10:00)
[2022-02-09] MEDS: BACITRACIN TOP OINT 1 UD PKG TOP SCH ×2 (10:00→22:15)
[2022-02-09] MEDS: MULTIPLE VITAMIN TAB GT SCH (10:00)
[2022-02-09 13:00] VITALS: BP 115/65
[2022-02-09 17:00] VITALS: BP 121/65
[2022-02-09 22:00] VITALS: BP 112/54
[2022-02-09] MEDS: traZODone HCL 50 MG TAB GT SCH (22:12)
[2022-02-10] MEDS: Jevity 1.2 Cal/Fiber 1 Liter GT SCH ×4 (04:00→22:07)
[2022-02-10 05:01] VITALS: BP 113/57
[2022-02-10] MEDS: FREE WATER GT SCH ×4 (06:00→18:30)
[2022-02-10] MEDS: LEVOTHYROXINE SODIUM 50 MCG TAB GT SCH (06:36)
[2022-02-10 08:49] VITALS: BP 121/66
[2022-02-10] MEDS: MULTIPLE VITAMIN TAB GT SCH (10:37)
[2022-02-10] MEDS: BACITRACIN TOP OINT 1 UD PKG TOP SCH ×2 (10:38→22:08)
[2022-02-10] MEDS: PANTOPRAZOLE 40 MG/10 ML VIAL INJ IV SCH (10:38)
[2022-02-10] MEDS: QUEtiapine FUMARATE 100 MG TAB GT SCH ×2 (10:38→22:07)
[2022-02-10] MEDS: risperiDONE 1 MG TAB GT SCH (10:38)
[2022-02-10 13:00] VITALS: BP 102/69
[2022-02-10] MEDS ORDERED: guaiFENesin-DM 100/10mg/5ml SYR PO PRN (16:30)
[2022-02-10 16:49] VITALS: BP 109/64
[2022-02-10 22:00] VITALS: BP 106/63
[2022-02-10] MEDS: traZODone HCL 50 MG TAB GT SCH (22:07)
[2022-02-11] MEDS: Jevity 1.2 Cal/Fiber 1 Liter GT SCH ×4 (04:39→22:34)
[2022-02-11 05:00] VITALS: BP 108/76
[2022-02-11] MEDS: FREE WATER GT SCH ×4 (06:01→17:57)
[2022-02-11] MEDS: LEVOTHYROXINE SODIUM 50 MCG TAB GT SCH (06:41)
[2022-02-11 09:00] VITALS: BP 93/67
[2022-02-11] MEDS: MULTIPLE VITAMIN TAB GT SCH (09:55)
[2022-02-11] MEDS: risperiDONE 1 MG TAB GT SCH (09:55)
[2022-02-11] MEDS: QUEtiapine FUMARATE 100 MG TAB GT SCH ×2 (09:55→22:34)
[2022-02-11] MEDS: BACITRACIN TOP OINT 1 UD PKG TOP SCH ×2 (09:56→22:36)
[2022-02-11] MEDS: PANTOPRAZOLE 40 MG/10 ML VIAL INJ IV SCH (09:56)
[2022-02-11] MEDS ORDERED: AZITHROMYCIN 200 MG/5 ML ORAL SUSP GT ONE (10:45)
[2022-02-11] MEDS: ALBUTEROL SULF 2.5 MG/0.5ML(0.5%) NEB SOLN NEB SCH ×2 (11:30→19:31)
[2022-02-11] MEDS: IPRATROPIUM BROM 0.5 MG/2.5ML INH SOL NEB SCH ×2 (11:30→19:31)
[2022-02-11 13:00] VITALS: BP 100/68
[2022-02-11 14:18] VITALS: BP 100/68
[2022-02-11 17:00] VITALS: BP 103/60
[2022-02-11 22:00] VITALS: BP 101/59
[2022-02-11] MEDS: traZODone HCL 50 MG TAB GT SCH (22:33)
[2022-02-12] MEDS: Jevity 1.2 Cal/Fiber 1 Liter GT SCH ×4 (04:00→22:08)
[2022-02-12 05:02] VITALS: BP 111/68
[2022-02-12] MEDS: FREE WATER GT SCH ×4 (06:38→19:08)
[2022-02-12] MEDS: LEVOTHYROXINE SODIUM 50 MCG TAB GT SCH (06:38)
[2022-02-12] MEDS: ALBUTEROL SULF 2.5 MG/0.5ML(0.5%) NEB SOLN NEB SCH ×2 (06:42→18:46)
[2022-02-12] MEDS: IPRATROPIUM BROM 0.5 MG/2.5ML INH SOL NEB SCH ×2 (06:42→18:46)
[2022-02-12 08:34] VITALS: BP 109/68
[2022-02-12] MEDS: MULTIPLE VITAMIN TAB GT SCH (10:34)
[2022-02-12] MEDS: risperiDONE 1 MG TAB GT SCH (10:34)
[2022-02-12] MEDS: QUEtiapine FUMARATE 100 MG TAB GT SCH ×2 (10:35→22:08)
[2022-02-12] MEDS: BACITRACIN TOP OINT 1 UD PKG TOP SCH ×2 (10:36→22:09)
[2022-02-12] MEDS: PANTOPRAZOLE 40 MG/10 ML VIAL INJ IV SCH (10:36)
[2022-02-12 12:39] VITALS: BP 116/61
[2022-02-12] MEDS: AZITHROMYCIN 200 MG/5 ML ORAL SUSP GT SCH (13:19)
[2022-02-12] MEDS: diphenhdrAMINE HCL 50 MG/1 ML VL IV PRN (15:49)
[2022-02-12 16:30] VITALS: BP 118/69
[2022-02-12] MEDS: traZODone HCL 50 MG TAB GT SCH (22:08)
[2022-02-13] MEDS: FREE WATER GT SCH ×3 (00:14→12:00)
[2022-02-13] MEDS: Jevity 1.2 Cal/Fiber 1 Liter GT SCH ×4 (04:00→21:25)
[2022-02-13 05:56] VITALS: BP 120/61
[2022-02-13] MEDS: IPRATROPIUM BROM 0.5 MG/2.5ML INH SOL NEB SCH ×3 (06:10→19:16)
[2022-02-13] MEDS: ALBUTEROL SULF 2.5 MG/0.5ML(0.5%) NEB SOLN NEB SCH ×3 (06:10→19:17)
[2022-02-13] MEDS: LEVOTHYROXINE SODIUM 50 MCG TAB GT SCH (06:56)
[2022-02-13 08:00] VITALS: BP 111/69
[2022-02-13 08:38] VITALS: BP 111/69
[2022-02-13] MEDS: PANTOPRAZOLE 40 MG/10 ML VIAL INJ IV SCH (10:30)
[2022-02-13] MEDS: MULTIPLE VITAMIN TAB GT SCH (10:30)
[2022-02-13] MEDS: AZITHROMYCIN 200 MG/5 ML ORAL SUSP GT SCH (10:30)
[2022-02-13] MEDS: QUEtiapine FUMARATE 100 MG TAB GT SCH ×2 (10:30→21:26)
[2022-02-13] MEDS: BACITRACIN TOP OINT 1 UD PKG TOP SCH ×2 (10:30→21:26)
[2022-02-13] MEDS: risperiDONE 1 MG TAB GT SCH (10:30)
[2022-02-13 12:30] VITALS: BP 102/59
[2022-02-13 16:32] VITALS: BP 115/70
[2022-02-13] MEDS: traZODone HCL 50 MG TAB GT SCH (21:25)
[2022-02-13 22:00] VITALS: BP 122/95
[2022-02-14] MEDS: FREE WATER GT SCH ×5 (00:12→17:35)
[2022-02-14] MEDS: Jevity 1.2 Cal/Fiber 1 Liter GT SCH ×4 (04:00→21:00)
[2022-02-14 05:00] VITALS: BP 120/53
[2022-02-14] MEDS: IPRATROPIUM BROM 0.5 MG/2.5ML INH SOL NEB SCH ×3 (06:07→19:40)
[2022-02-14] MEDS: ALBUTEROL SULF 2.5 MG/0.5ML(0.5%) NEB SOLN NEB SCH ×3 (06:08→19:40)
[2022-02-14] MEDS: LEVOTHYROXINE SODIUM 50 MCG TAB GT SCH (06:36)
[2022-02-14 08:20] VITALS: BP 112/81
[2022-02-14 09:50] VITALS: BP 112/81
[2022-02-14] MEDS: MULTIPLE VITAMIN TAB GT SCH (10:46)
[2022-02-14] MEDS: risperiDONE 1 MG TAB GT SCH (10:47)
[2022-02-14] MEDS: QUEtiapine FUMARATE 100 MG TAB GT SCH ×2 (10:47→21:59)
[2022-02-14] MEDS: AZITHROMYCIN 200 MG/5 ML ORAL SUSP GT SCH (10:48)
[2022-02-14] MEDS: PANTOPRAZOLE 40 MG/10 ML VIAL INJ IV SCH (10:49)
[2022-02-14] MEDS: BACITRACIN TOP OINT 1 UD PKG TOP SCH ×2 (10:49→21:59)
[2022-02-14] MEDS: HALOPERIDOL LACTATE 5 MG/ML INJ VIAL IM PRN (10:52)
[2022-02-14 12:00] VITALS: BP 126/76
[2022-02-14 16:00] VITALS: BP 104/50
[2022-02-14 21:33] VITALS: BP 100/42
[2022-02-14] MEDS: traZODone HCL 50 MG TAB GT SCH (21:59)
[2022-02-15] MEDS: FREE WATER GT SCH ×5 (00:14→23:12)
[2022-02-15] MEDS: Jevity 1.2 Cal/Fiber 1 Liter GT SCH ×5 (03:00→23:11)
[2022-02-15 04:43] VITALS: BP 105/57
[2022-02-15] MEDS: ALBUTEROL SULF 2.5 MG/0.5ML(0.5%) NEB SOLN NEB SCH ×3 (06:49→20:00)
[2022-02-15] MEDS: IPRATROPIUM BROM 0.5 MG/2.5ML INH SOL NEB SCH ×3 (06:49→20:00)
[2022-02-15] MEDS: LEVOTHYROXINE SODIUM 50 MCG TAB GT SCH (06:59)
[2022-02-15 08:43] VITALS: BP 97/61
[2022-02-15] MEDS: MULTIPLE VITAMIN TAB GT SCH (11:12)
[2022-02-15] MEDS: AZITHROMYCIN 200 MG/5 ML ORAL SUSP GT SCH (11:12)
[2022-02-15] MEDS: BACITRACIN TOP OINT 1 UD PKG TOP SCH ×2 (11:13→23:12)
[2022-02-15] MEDS: PANTOPRAZOLE 40 MG/10 ML VIAL INJ IV SCH (11:13)
[2022-02-15] MEDS: risperiDONE 1 MG TAB GT SCH (11:18)
[2022-02-15 12:57] VITALS: BP 101/65
[2022-02-15 17:00] VITALS: BP 114/44
[2022-02-15 22:00] VITALS: BP 105/54
[2022-02-16] MEDS: diphenhdrAMINE HCL 50 MG/1 ML VL IV PRN (01:44)
[2022-02-16] MEDS: Jevity 1.2 Cal/Fiber 1 Liter GT SCH ×5 (03:44→22:49)
[2022-02-16] MEDS: HALOPERIDOL LACTATE 5 MG/ML INJ VIAL IM PRN ×2 (03:45→09:49)
[2022-02-16 05:00] VITALS: BP 107/61
[2022-02-16] MEDS: FREE WATER GT SCH ×4 (05:46→23:02)
[2022-02-16] MEDS: LEVOTHYROXINE SODIUM 50 MCG TAB GT SCH (06:18)
[2022-02-16] MEDS: ALBUTEROL SULF 2.5 MG/0.5ML(0.5%) NEB SOLN NEB SCH ×3 (07:39→18:42)
[2022-02-16] MEDS: IPRATROPIUM BROM 0.5 MG/2.5ML INH SOL NEB SCH ×3 (07:39→18:42)
[2022-02-16 08:50] VITALS: BP 105/59
[2022-02-16] MEDS: MULTIPLE VITAMIN TAB GT SCH (09:48)
[2022-02-16] MEDS: PANTOPRAZOLE 40 MG/10 ML VIAL INJ IV SCH (09:49)
[2022-02-16] MEDS: BACITRACIN TOP OINT 1 UD PKG TOP SCH ×2 (09:49→22:49)
[2022-02-16] MEDS: risperiDONE 1 MG TAB GT SCH (09:51)
[2022-02-16 13:00] VITALS: BP 110/56
[2022-02-16 17:00] VITALS: BP 117/70
[2022-02-16 22:00] VITALS: BP 106/47
[2022-02-17] MEDS: HALOPERIDOL LACTATE 5 MG/ML INJ VIAL IM PRN ×2 (02:03→23:57)
[2022-02-17] MEDS: Jevity 1.2 Cal/Fiber 1 Liter GT SCH ×5 (04:44→23:53)
[2022-02-17 05:00] VITALS: BP 107/68
[2022-02-17] MEDS: IPRATROPIUM BROM 0.5 MG/2.5ML INH SOL NEB SCH ×3 (05:39→18:47)
[2022-02-17] MEDS: ALBUTEROL SULF 2.5 MG/0.5ML(0.5%) NEB SOLN NEB SCH ×3 (05:39→18:47)
[2022-02-17] MEDS: FREE WATER GT SCH ×4 (06:00→23:53)
[2022-02-17] MEDS: LEVOTHYROXINE SODIUM 50 MCG TAB GT SCH (07:00)
[2022-02-17 08:53] VITALS: BP 115/73
[2022-02-17] MEDS: PANTOPRAZOLE 40 MG/10 ML VIAL INJ IV SCH (09:27)
[2022-02-17] MEDS: MULTIPLE VITAMIN TAB GT SCH (09:27)
[2022-02-17] MEDS: risperiDONE 1 MG TAB GT SCH (09:27)
[2022-02-17 11:12] VITALS: BP 115/73
[2022-02-17] MEDS: BACITRACIN TOP OINT 1 UD PKG TOP SCH ×2 (11:30→21:24)
[2022-02-17 13:00] VITALS: BP 108/43
[2022-02-17 16:42] VITALS: BP 99/51
[2022-02-17 22:00] VITALS: BP 102/65
[2022-02-18] MEDS: diphenhdrAMINE HCL 50 MG/1 ML VL IV PRN ×2 (01:28→20:50)
[2022-02-18] MEDS: Jevity 1.2 Cal/Fiber 1 Liter GT SCH ×4 (04:26→20:26)
[2022-02-18] MEDS: FREE WATER GT SCH ×4 (05:00→23:40)
[2022-02-18] MEDS: ALBUTEROL SULF 2.5 MG/0.5ML(0.5%) NEB SOLN NEB SCH ×3 (06:08→18:00)
[2022-02-18] MEDS: IPRATROPIUM BROM 0.5 MG/2.5ML INH SOL NEB SCH ×3 (06:08→18:00)
[2022-02-18] MEDS: LEVOTHYROXINE SODIUM 50 MCG TAB GT SCH (06:35)
[2022-02-18] MEDS: HALOPERIDOL LACTATE 5 MG/ML INJ VIAL IM PRN ×3 (06:55→23:38)
[2022-02-18 10:00] VITALS: BP 111/60
[2022-02-18] MEDS: MULTIPLE VITAMIN TAB GT SCH (10:28)
[2022-02-18] MEDS: BACITRACIN TOP OINT 1 UD PKG TOP SCH ×2 (10:31→23:06)
[2022-02-18] MEDS: risperiDONE 1 MG TAB GT SCH (10:31)
[2022-02-18] MEDS: PANTOPRAZOLE 40 MG/10 ML VIAL INJ IV SCH (10:31)
[2022-02-18 13:00] VITALS: BP 136/57
[2022-02-18] MEDS: OLANZapine 5 MG TAB PO PRN (13:00)
[2022-02-18 22:00] VITALS: BP 112/51
[2022-02-18] MEDS: LINEZOLID 600MG TABLET PO SCH (23:06)
[2022-02-19] MEDS: Jevity 1.2 Cal/Fiber 1 Liter GT SCH ×5 (01:33→21:00)
[2022-02-19 05:00] VITALS: BP 106/57
[2022-02-19] MEDS: FREE WATER GT SCH ×3 (05:41→17:43)
[2022-02-19] MEDS: HALOPERIDOL LACTATE 5 MG/ML INJ VIAL IM PRN (05:50)
[2022-02-19] MEDS: LEVOTHYROXINE SODIUM 50 MCG TAB GT SCH (06:56)
[2022-02-19] MEDS: ALBUTEROL SULF 2.5 MG/0.5ML(0.5%) NEB SOLN NEB SCH ×3 (08:26→18:18)
[2022-02-19] MEDS: IPRATROPIUM BROM 0.5 MG/2.5ML INH SOL NEB SCH ×3 (08:27→18:19)
[2022-02-19 09:00] VITALS: BP 106/58
[2022-02-19] MEDS: PANTOPRAZOLE 40 MG/10 ML VIAL INJ IV SCH (11:21)
[2022-02-19] MEDS: LINEZOLID 600MG TABLET PO SCH ×2 (11:21→21:36)
[2022-02-19] MEDS: MULTIPLE VITAMIN TAB GT SCH (11:21)
[2022-02-19] MEDS: risperiDONE 1 MG TAB GT SCH (11:21)
[2022-02-19] MEDS: BACITRACIN TOP OINT 1 UD PKG TOP SCH (11:21)
[2022-02-19 13:00] VITALS: BP 126/72
[2022-02-19 17:00] VITALS: BP 102/66
[2022-02-19] MEDS: levETIRAcetam 500 MG/5ML ORAL SOLN UD PO SCH (21:36)
[2022-02-19 22:00] VITALS: BP 118/64
[2022-02-20] MEDS: Jevity 1.2 Cal/Fiber 1 Liter GT SCH ×5 (02:00→22:30)
[2022-02-20 04:50] VITALS: BP 99/64
[2022-02-20] MEDS: OLANZapine 5 MG TAB PO PRN (04:52)
[2022-02-20] MEDS: FREE WATER GT SCH ×4 (06:00→18:00)
[2022-02-20] MEDS: ALBUTEROL SULF 2.5 MG/0.5ML(0.5%) NEB SOLN NEB SCH (06:03)
[2022-02-20] MEDS: IPRATROPIUM BROM 0.5 MG/2.5ML INH SOL NEB SCH (06:03)
[2022-02-20] MEDS: HALOPERIDOL LACTATE 5 MG/ML INJ VIAL IM PRN (06:16)
[2022-02-20 06:24] LABS: Basophils # (auto) 0 10 ^3/uL (0-0.2); Basophils % (auto) 1.1 % (0.0-2.0); Eosinophils # (auto) 0.1 10 ^3/uL (0-0.8); Eosinophils % (auto) 4.2 % (0.0-7.0); Hematocrit 33.5 % (41.0-53.0); Hemoglobin 11.9 g/dL (13.5-17.5); Lymphocytes # (auto) 1.2 10 ^3/uL (0.4-5.4); Lymphocytes % (auto) 38.8 % (10.0-50.0); Mean Corpuscular Hemoglobin 32.9 pg (28.0-32.0); Mean Corpuscular Hgb Conc. 35.7 g/dL (32.0-36.0); Mean Corpuscular Volume 92.1 fL (80.0-100.0); Monocytes # (auto) 0.4 10 ^3/uL (0-1.3); Monocytes % (auto) 12.5 % (0.0-12.0); Neutrophils # (auto) 1.3 10 ^3/uL (1.6-8.6); Neutrophils % (auto) 43.4 % (37.0-80.0); Nucleated Red Blood Cells % 0.4 %; Red Blood Cells 3.63 10^6/uL (4.5-5.90); Red Cell Distribution Width 17.3 % (11.8-14.3)
[2022-02-20 06:41] LABS: Albumin 2.6 g/dL (3.4-5.0); Calcium 8.5 mg/dL (8.5-10.1); Potassium 4.9 mmol/L (3.5-5.1)
[2022-02-20 06:46] LABS: BUN/Creatinine Ratio 33.3; Bilirubin, Total 0.6 mg/dL (0.2-1.0); Total Protein 6.1 g/dL (6.4-8.2)
[2022-02-20] MEDS: LEVOTHYROXINE SODIUM 50 MCG TAB GT SCH (07:00)
[2022-02-20] MEDS: risperiDONE 1 MG TAB GT SCH ×2 (12:00→12:28)
[2022-02-20] MEDS: MULTIPLE VITAMIN TAB GT SCH (12:28)
[2022-02-20] MEDS: levETIRAcetam 500 MG/5ML ORAL SOLN UD PO SCH ×2 (12:28→22:30)
[2022-02-20] MEDS: LINEZOLID 600MG TABLET PO SCH ×2 (12:43→22:29)
[2022-02-20 13:00] VITALS: BP 98/39
[2022-02-20 17:00] VITALS: BP 114/70
[2022-02-20] MEDS: LACTULOSE 20Gm/30ML SOLN PO PRN (17:26)
[2022-02-20] MEDS: diphenhdrAMINE HCL 50 MG/1 ML VL IV PRN (22:42)
[2022-02-21] MEDS: Jevity 1.2 Cal/Fiber 1 Liter GT SCH ×5 (03:00→23:00)
[2022-02-21 05:00] VITALS: BP 94/60
[2022-02-21] MEDS: FREE WATER GT SCH ×4 (06:00→18:15)
[2022-02-21] MEDS: LEVOTHYROXINE SODIUM 50 MCG TAB GT SCH (06:38)
[2022-02-21 09:00] VITALS: BP 106/54
[2022-02-21] MEDS: MULTIPLE VITAMIN TAB GT SCH (10:13)
[2022-02-21] MEDS: LINEZOLID 600MG TABLET PO SCH (10:13)
[2022-02-21] MEDS: levETIRAcetam 500 MG/5ML ORAL SOLN UD PO SCH ×2 (10:13→22:52)
[2022-02-21] MEDS: risperiDONE 1 MG TAB GT SCH (10:13)
[2022-02-21] MEDS ORDERED: SULFAMETHOX W/TRIMETH(800/160MG) DS TAB PO ONE (10:45)
[2022-02-21 13:00] VITALS: BP 90/42
[2022-02-21 22:00] VITALS: BP 90/61
[2022-02-21] MEDS: SULFAMETHOX W/TRIMETH(800/160MG) DS TAB PO SCH (22:51)
[2022-02-22] MEDS: Jevity 1.2 Cal/Fiber 1 Liter GT SCH ×4 (04:00→18:51)
[2022-02-22 05:00] VITALS: BP 125/65
[2022-02-22] MEDS: FREE WATER GT SCH ×4 (06:00→18:51)
[2022-02-22] MEDS: LEVOTHYROXINE SODIUM 50 MCG TAB GT SCH (06:31)
[2022-02-22 09:00] VITALS: BP 120/60
[2022-02-22] MEDS: risperiDONE 1 MG TAB GT SCH (11:30)
[2022-02-22] MEDS: MULTIPLE VITAMIN TAB GT SCH (11:30)
[2022-02-22] MEDS: levETIRAcetam 500 MG/5ML ORAL SOLN UD PO SCH ×2 (11:30→22:16)
[2022-02-22] MEDS: SULFAMETHOX W/TRIMETH(800/160MG) DS TAB PO SCH ×2 (11:30→22:15)
[2022-02-22 13:00] VITALS: BP 132/72
[2022-02-22 17:00] VITALS: BP 128/63
[2022-02-22 22:00] VITALS: BP 96/64
[2022-02-22] MEDS: HALOPERIDOL LACTATE 5 MG/ML INJ VIAL IM PRN (23:00)
[2022-02-23] MEDS: Jevity 1.2 Cal/Fiber 1 Liter GT SCH ×5 (05:00→20:00)
[2022-02-23 05:03] VITALS: BP 122/77
[2022-02-23] MEDS: FREE WATER GT SCH ×4 (06:00→17:45)
[2022-02-23] MEDS: LEVOTHYROXINE SODIUM 50 MCG TAB GT SCH (06:54)
[2022-02-23 08:30] VITALS: BP 118/69
[2022-02-23 09:00] VITALS: BP 118/69
[2022-02-23] MEDS: levETIRAcetam 500 MG/5ML ORAL SOLN UD PO SCH ×2 (12:30→21:43)
[2022-02-23] MEDS: NYSTATIN TOPICAL CREAM 15GM TOP SCH ×2 (12:30→21:43)
[2022-02-23] MEDS: MULTIPLE VITAMIN TAB GT SCH (12:30)
[2022-02-23] MEDS: risperiDONE 1 MG TAB GT SCH (12:30)
[2022-02-23] MEDS: SULFAMETHOX W/TRIMETH(800/160MG) DS TAB PO SCH ×2 (12:30→21:42)
[2022-02-23 13:00] VITALS: BP 122/70
[2022-02-23 17:27] VITALS: BP 102/65
[2022-02-23] MEDS: HALOPERIDOL LACTATE 5 MG/ML INJ VIAL IM PRN (22:50)
[2022-02-24] MEDS: Jevity 1.2 Cal/Fiber 1 Liter GT SCH ×5 (01:00→21:11)
[2022-02-24 02:00] VITALS: BP 107/62
[2022-02-24] MEDS: diphenhdrAMINE HCL 50 MG/1 ML VL IV PRN (02:55)
[2022-02-24 05:00] VITALS: BP 110/69
[2022-02-24] MEDS: FREE WATER GT SCH ×4 (06:00→17:30)
[2022-02-24] MEDS: LEVOTHYROXINE SODIUM 50 MCG TAB GT SCH (07:05)
[2022-02-24 09:00] VITALS: BP 127/95
[2022-02-24] MEDS: NYSTATIN TOPICAL CREAM 15GM TOP SCH ×2 (10:30→22:19)
[2022-02-24] MEDS: MULTIPLE VITAMIN TAB GT SCH (10:45)
[2022-02-24] MEDS: risperiDONE 1 MG TAB GT SCH (10:45)
[2022-02-24] MEDS: SULFAMETHOX W/TRIMETH(800/160MG) DS TAB PO SCH ×2 (10:45→22:19)
[2022-02-24] MEDS: levETIRAcetam 500 MG/5ML ORAL SOLN UD PO SCH ×2 (10:45→22:19)
[2022-02-24] MEDS: HALOPERIDOL LACTATE 5 MG/ML INJ VIAL IM PRN (13:42)
[2022-02-24 17:00] VITALS: BP 109/82
[2022-02-25] MEDS: Jevity 1.2 Cal/Fiber 1 Liter GT SCH ×5 (02:00→22:04)
[2022-02-25] MEDS: HALOPERIDOL LACTATE 5 MG/ML INJ VIAL IM PRN ×2 (03:51→23:34)
[2022-02-25] MEDS: FREE WATER GT SCH ×4 (06:01→18:00)
[2022-02-25] MEDS: LEVOTHYROXINE SODIUM 50 MCG TAB GT SCH (06:19)
[2022-02-25 09:00] VITALS: BP 106/75
[2022-02-25 09:31] LABS: Calcium 8.7 mg/dL (8.5-10.1); Potassium 4.7 mmol/L (3.5-5.1)
[2022-02-25 09:35] LABS: Bilirubin, Total 0.5 mg/dL (0.2-1.0); Total Protein 6.6 g/dL (6.4-8.2)
[2022-02-25] MEDS: levETIRAcetam 500 MG/5ML ORAL SOLN UD PO SCH ×2 (10:30→22:04)
[2022-02-25] MEDS: MULTIPLE VITAMIN TAB GT SCH (10:30)
[2022-02-25] MEDS: risperiDONE 1 MG TAB GT SCH (10:30)
[2022-02-25] MEDS: NYSTATIN TOPICAL CREAM 15GM TOP SCH ×2 (10:30→22:04)
[2022-02-25 13:00] VITALS: BP 110/77
[2022-02-25 17:00] VITALS: BP 101/65
[2022-02-25 22:00] VITALS: BP 89/48
[2022-02-26] MEDS: Jevity 1.2 Cal/Fiber 1 Liter GT SCH ×5 (03:00→23:29)
[2022-02-26 05:00] VITALS: BP 92/51
[2022-02-26] MEDS: LACTULOSE 20Gm/30ML SOLN PO PRN (05:30)
[2022-02-26] MEDS: LEVOTHYROXINE SODIUM 50 MCG TAB GT SCH (06:27)
[2022-02-26] MEDS: FREE WATER GT SCH ×5 (06:27→23:45)
[2022-02-26 08:00] VITALS: BP 145/72
[2022-02-26 08:30] VITALS: BP 98/58
[2022-02-26] MEDS: levETIRAcetam 500 MG/5ML ORAL SOLN UD PO SCH ×2 (09:20→23:12)
[2022-02-26 09:47] LABS: Bilirubin, Direct 0.2 mg/dL (0-0.2); Bilirubin, Total 0.6 mg/dL (0.2-1.0); Total Protein 6.5 g/dL (6.4-8.2)
[2022-02-26] MEDS: MULTIPLE VITAMIN TAB GT SCH (10:00)
[2022-02-26] MEDS: NYSTATIN TOPICAL CREAM 15GM TOP SCH ×2 (10:00→23:05)
[2022-02-26] MEDS: risperiDONE 1 MG TAB GT SCH (10:00)
[2022-02-26] MEDS ORDERED: GASTROGRAFIN 120 ML SOL ONE ×2 (11:28→14:16)
[2022-02-26 13:00] VITALS: BP 102/64
[2022-02-26] MEDS: LORazepam 2MG/ML-1ML VIAL IV PRN (16:34)
[2022-02-26 17:00] VITALS: BP 103/54
[2022-02-26] MEDS: HALOPERIDOL LACTATE 5 MG/ML INJ VIAL IM PRN (17:05)
[2022-02-27] VITALS (7 sets, daily range): BP systolic 112–127; BP diastolic 56–85
[2022-02-27] MEDS: LORazepam 2MG/ML-1ML VIAL IV PRN (00:53)
[2022-02-27] MEDS: Jevity 1.2 Cal/Fiber 1 Liter GT SCH ×4 (04:00→19:00)
[2022-02-27] MEDS: LEVOTHYROXINE SODIUM 50 MCG TAB GT SCH (07:40)
[2022-02-27] MEDS: FREE WATER GT SCH ×3 (07:40→18:00)
[2022-02-27] MEDS: MULTIPLE VITAMIN TAB GT SCH (09:30)
[2022-02-27] MEDS: levETIRAcetam 500 MG/5ML ORAL SOLN UD PO SCH (09:30)
[2022-02-27] MEDS: NYSTATIN TOPICAL CREAM 15GM TOP SCH ×2 (09:30→22:34)
[2022-02-27] MEDS: risperiDONE 1 MG TAB GT SCH (09:30)
[2022-02-27] MEDS: HALOPERIDOL LACTATE 5 MG/ML INJ VIAL IM PRN ×2 (22:26→22:33)
[2022-02-28] MEDS: FREE WATER GT SCH ×4 (01:11→18:10)
[2022-02-28] MEDS: Jevity 1.2 Cal/Fiber 1 Liter GT SCH ×4 (01:30→15:30)
[2022-02-28 04:38] VITALS: BP 118/65
[2022-02-28] MEDS: LEVOTHYROXINE SODIUM 50 MCG TAB GT SCH (06:20)
[2022-02-28 07:45] VITALS: BP 100/57
[2022-02-28] MEDS ORDERED: GASTROGRAFIN 30 ML SOL ONE (08:10)
[2022-02-28 08:45] VITALS: BP 100/57
[2022-02-28] MEDS: risperiDONE 1 MG TAB GT SCH (10:43)
[2022-02-28] MEDS: MULTIPLE VITAMIN TAB GT SCH (10:43)
[2022-02-28] MEDS: NYSTATIN TOPICAL CREAM 15GM TOP SCH (10:43)
[2022-02-28 12:50] VITALS: BP 102/80
[2022-02-28 16:48] VITALS: BP 96/42
[2022-02-28 22:00] VITALS: BP 110/70
[2022-03-01] MEDS: NYSTATIN TOPICAL CREAM 15GM TOP SCH ×3 (00:04→21:52)
[2022-03-01] MEDS: Jevity 1.2 Cal/Fiber 1 Liter GT SCH ×5 (00:19→21:51)
[2022-03-01] MEDS: FREE WATER GT SCH ×4 (00:20→23:51)
[2022-03-01 05:00] VITALS: BP 105/68
[2022-03-01 08:15] VITALS: BP 131/67
[2022-03-01] MEDS: LEVOTHYROXINE SODIUM 50 MCG TAB GT SCH (08:15)
[2022-03-01 08:33] VITALS: BP 131/67
[2022-03-01] MEDS: MULTIPLE VITAMIN TAB GT SCH (10:27)
[2022-03-01] MEDS: risperiDONE 1 MG TAB GT SCH (10:27)
[2022-03-01 12:12] VITALS: BP 125/70
[2022-03-01 15:47] VITALS: BP 113/69
[2022-03-01] MEDS: levETIRAcetam 500 MG/5ML ORAL SOLN UD PO SCH (21:52)
[2022-03-01 22:00] VITALS: BP 121/86
[2022-03-02] MEDS: Jevity 1.2 Cal/Fiber 1 Liter GT SCH ×5 (02:00→21:32)
[2022-03-02 05:00] VITALS: BP 140/116
[2022-03-02] MEDS: FREE WATER GT SCH ×3 (06:00→17:32)
[2022-03-02] MEDS: LEVOTHYROXINE SODIUM 50 MCG TAB GT SCH (07:00)
[2022-03-02 09:00] VITALS: BP 93/54
[2022-03-02] MEDS: MULTIPLE VITAMIN TAB GT SCH (10:00)
[2022-03-02] MEDS: NYSTATIN TOPICAL CREAM 15GM TOP SCH ×2 (10:00→22:00)
[2022-03-02] MEDS: risperiDONE 1 MG TAB GT SCH (10:00)
[2022-03-02] MEDS: levETIRAcetam 500 MG/5ML ORAL SOLN UD PO SCH ×2 (10:00→21:33)
[2022-03-02 13:00] VITALS: BP 96/63
[2022-03-02 17:00] VITALS: BP 99/57
[2022-03-02 19:54] VITALS: BP 105/79
[2022-03-03] MEDS: Jevity 1.2 Cal/Fiber 1 Liter GT SCH ×6 (03:00→19:06)
[2022-03-03] MEDS: FREE WATER GT SCH ×6 (06:00→19:06)
[2022-03-03] MEDS: LEVOTHYROXINE SODIUM 50 MCG TAB GT SCH (06:05)
[2022-03-03 08:31] VITALS: BP 112/76
[2022-03-03] MEDS ORDERED: D5W/SOD CHLO 0.9% 1,000 ML IV SCH (11:00)
[2022-03-03] MEDS ORDERED: DEXTROSE (50%) 50ML SYRG IV ONE ×2 (11:00)
[2022-03-03] MEDS: MULTIPLE VITAMIN TAB GT SCH (12:20)
[2022-03-03] MEDS: risperiDONE 1 MG TAB GT SCH (12:21)
[2022-03-03] MEDS: levETIRAcetam 500 MG/5ML ORAL SOLN UD PO SCH ×2 (12:22→22:00)
[2022-03-03] MEDS: NYSTATIN TOPICAL CREAM 15GM TOP SCH ×2 (12:22→22:00)
[2022-03-03 12:44] VITALS: BP 104/71
[2022-03-03 16:44] VITALS: BP 91/65
[2022-03-04] VITALS (16 sets, daily range): BP systolic 75–145; BP diastolic 31–75
[2022-03-04] MEDS: Jevity 1.2 Cal/Fiber 1 Liter GT SCH ×8 (00:10→22:26)
[2022-03-04] MEDS: FREE WATER GT SCH ×6 (00:10→18:36)
[2022-03-04] MEDS: LEVOTHYROXINE SODIUM 50 MCG TAB GT SCH (06:46)
[2022-03-04] MEDS: MULTIPLE VITAMIN TAB GT SCH (09:02)
[2022-03-04] MEDS: risperiDONE 1 MG TAB GT SCH (09:03)
[2022-03-04] MEDS: levETIRAcetam 500 MG/5ML ORAL SOLN UD PO SCH ×3 (09:04→23:20)
[2022-03-04] MEDS: NYSTATIN TOPICAL CREAM 15GM TOP SCH ×2 (09:04→22:25)
[2022-03-04] MEDS: D5W/SOD CHLO 0.9% 1,000 ML IV SCH ×2 (12:47→23:35)
[2022-03-04] MEDS: LORazepam 2MG/ML-1ML VIAL IV PRN (15:04)
[2022-03-04] MEDS ORDERED: ARTIFICIAL TEARS 15ml EACHEYE PRN (16:00)
[2022-03-04] MEDS ORDERED: SODIUM CHLORIDE 0.9% 3,000 ML IV ONE (17:30)
[2022-03-04] MEDS: MIDODRINE HCL 10 MG TAB PO SCH (18:37)
[2022-03-04] MEDS ORDERED: SODIUM CHLORIDE 0.9% 1,000 ML IV ONE (21:30)
[2022-03-04 22:49] LABS: Albumin 2.1 g/dL (3.4-5.0); Calcium 6.9 mg/dL (8.5-10.1)
[2022-03-04 22:52] LABS: Bilirubin, Total 0.6 mg/dL (0.2-1.0); Total Protein 4.4 g/dL (6.4-8.2)
[2022-03-04] MEDS ORDERED: ALBUMIN 25% 50 ML IV ONE (23:00)
[2022-03-04 23:43] LABS: Hemoglobin 12.9 g/dL (13.5-17.5)
[2022-03-04 23:54] LABS: Hematocrit 36.1 % (41.0-53.0); Mean Corpuscular Hemoglobin 34.2 pg (28.0-32.0); Mean Corpuscular Hgb Conc. 35.8 g/dL (32.0-36.0); Mean Corpuscular Volume 95.5 fL (80.0-100.0); Red Blood Cells 3.78 10^6/uL (4.5-5.90); Red Cell Distribution Width 18.9 % (11.8-14.3)
[2022-03-05] VITALS (58 sets, daily range): BP systolic 61–112; BP diastolic 30–77
[2022-03-05] MEDS ORDERED: NOREPINEPHRINE 8 MG/250ML KIT 250 ML IV ONE (00:01)
[2022-03-05 00:04] LABS: Blast Cells 0; Eosinophils % (manual) 0 (0-7); Promyelocytes % 0; Reactive Lymphocytes 0; White Blood Cell 0.8 10^3/uL (4.4-10.8)
[2022-03-05] MEDS ORDERED: NOREPINEPHRINE 8 MG/250ML KIT 250 ML IV SCH ×2 (00:30)
[2022-03-05 00:51] LABS: Band Neutrophils % (manual) 13; Basophils % (manual) 3 (0.0-2.0); Lymphocytes % (manual) 37 (10.0-50.0); Metamyelocytes % 3; Monocytes % (manual) 14 (0-12); Myelocytes % 10
[2022-03-05] MEDS ORDERED: SOD CHL 0.45% 1,000 ML IV ONE (02:45)
[2022-03-05] MEDS ORDERED: ALBUMIN 25% 50 ML IV ONE (02:45)
[2022-03-05] MEDS: FREE WATER GT SCH ×4 (03:29→09:00)
[2022-03-05] MEDS ORDERED: PHENYLEPHRINE IV 250 ML IV ONE (06:24)
[2022-03-05] MEDS ORDERED: PHENYLEPHRINE IV 250 ML IV SCH (06:30)
[2022-03-05] MEDS: MIDODRINE HCL 10 MG TAB PO SCH ×2 (06:44→09:46)
[2022-03-05] MEDS: LEVOTHYROXINE SODIUM 50 MCG TAB GT SCH (06:46)
[2022-03-05 09:46] LABS: INR 1.88 (0.9-1.15); Partial Thromboplastin Time 52.9 sec (23.6-33.0)
[2022-03-05] MEDS: MULTIPLE VITAMIN TAB GT SCH (09:46)
[2022-03-05] MEDS: NYSTATIN TOPICAL CREAM 15GM TOP SCH ×2 (09:46→23:00)
[2022-03-05] MEDS: levETIRAcetam 500 MG/5ML ORAL SOLN UD PO SCH (09:47)
[2022-03-05] MEDS: risperiDONE 1 MG TAB GT SCH (10:00)
[2022-03-05] MEDS ORDERED: SULFAMETH-TRIMETH 80/16MG-ML 10 ML in D5W 5% 250 ML IV ONE (12:45)
[2022-03-05] MEDS ORDERED: FAMOTIDINE (10MG/ML) 2ML VL IV ONE (12:45)
[2022-03-05] MEDS: NOREPINEPHRINE BITARTRATE 16 MG in SODIUM CHL 0.9% 234 ML IV SCH ×2 (13:26→23:01)
[2022-03-05] MEDS: PHENYLEPHRINE INJ 40 MG in SODIUM CHL 0.9% 246 ML IV SCH ×3 (13:26→23:01)
[2022-03-05] MEDS ORDERED: SULFAMETH-TRIMETH 80/16MG-ML 10 ML in D5W 5% 250 ML IV SCH (14:00)
[2022-03-05] MEDS: VASOPRESSIN 50 UNITS in D5W 5% 247.5 ML IV SCH (14:13)
[2022-03-05] MEDS: D5W/SOD CHL 0.45% 1,000 ML IV SCH ×2 (14:14→22:53)
[2022-03-05] MEDS: SULFAMETH-TRIMETH 80/16MG-ML 10 ML in D5W 5% 250 ML IV SCH (15:38)
[2022-03-05] MEDS ORDERED: LIDOCAINE 1% (LOCAL ANESTH.) PF 5ml SDV ID ONE (18:30)
[2022-03-05] MEDS: SODIUM CHLOR 0.9% PF (SALINE LOCK) 10ML VIAL/SYR IV SCH (22:52)
[2022-03-05] MEDS: levETIRAcetam INJ 750 MG in SODIUM CHL 0.9% 100 ML IV SCH (22:52)
[2022-03-06] VITALS (62 sets, daily range): BP systolic 43–128; BP diastolic 26–107
[2022-03-06 04:18] LABS: Basophils # (auto) 0 10 ^3/uL (0-0.2); Eosinophils # (auto) 0 10 ^3/uL (0-0.8); Hemoglobin 10.7 g/dL (13.5-17.5); Lymphocytes # (auto) 0 10 ^3/uL (0.4-5.4); Monocytes # (auto) 0 10 ^3/uL (0-1.3); Red Cell Distribution Width 18.8 % (11.8-14.3)
[2022-03-06] MEDS: SULFAMETH-TRIMETH 80/16MG-ML 10 ML in D5W 5% 250 ML IV SCH ×2 (04:27→16:01)
[2022-03-06 04:36] LABS: Albumin 1.9 g/dL (3.4-5.0); Calcium 6.7 mg/dL (8.5-10.1)
[2022-03-06 04:38] LABS: BUN/Creatinine Ratio 59.6
[2022-03-06 04:40] LABS: Bilirubin, Total 0.9 mg/dL (0.2-1.0); Total Protein 4.2 g/dL (6.4-8.2)
[2022-03-06 06:06] LABS: Basophils % (auto) 1.1 % (0.0-2.0); Eosinophils % (auto) 0.7 % (0.0-7.0); Hematocrit 29.2 % (41.0-53.0); Lymphocytes % (auto) 5.1 % (10.0-50.0); Mean Corpuscular Hemoglobin 34.6 pg (28.0-32.0); Mean Corpuscular Volume 94.1 fL (80.0-100.0); Monocytes % (auto) 3.5 % (0.0-12.0); Neutrophils # (auto) 0.6 10 ^3/uL (1.6-8.6); Neutrophils % (auto) 89.6 % (37.0-80.0); Nucleated Red Blood Cells % 1.5 %; Red Blood Cells 3.11 10^6/uL (4.5-5.90)
[2022-03-06 06:07] LABS: Mean Corpuscular Hgb Conc. 36.8 g/dL (32.0-36.0)
[2022-03-06 06:08] LABS: White Blood Cell 0.7 10^3/uL (4.4-10.8)
[2022-03-06] MEDS: VASOPRESSIN 50 UNITS in D5W 5% 247.5 ML IV SCH (08:33)
[2022-03-06] MEDS: PHENYLEPHRINE INJ 40 MG in SODIUM CHL 0.9% 246 ML IV SCH ×2 (08:34→12:05)
[2022-03-06] MEDS: NOREPINEPHRINE BITARTRATE 16 MG in SODIUM CHL 0.9% 234 ML IV SCH (08:35)
[2022-03-06] MEDS: D5W/SOD CHL 0.45% 1,000 ML IV SCH (08:45)
[2022-03-06] MEDS: SODIUM CHLOR 0.9% PF (SALINE LOCK) 10ML VIAL/SYR IV SCH ×2 (09:32→22:05)
[2022-03-06] MEDS: levETIRAcetam INJ 750 MG in SODIUM CHL 0.9% 100 ML IV SCH ×3 (09:32→22:00)
[2022-03-06] MEDS: NYSTATIN TOPICAL CREAM 15GM TOP SCH ×2 (09:32→22:05)
[2022-03-06] MEDS ORDERED: LEVOTHYROXINE SODIUM 100 MCG/5 ML INJ IV SCH (10:00)
[2022-03-06] MEDS ORDERED: POTASSIUM CHLORIDE 20 MEQ in D5W 5% 1,000 ML IV SCH (13:00)
[2022-03-06] MEDS: D5W/SOD CHL 0.45%/KCL 20MEQ 1,000 ML IV SCH (13:36)
[2022-03-06] MEDS: MORPHINE SULFATE INJECTION 2 MG/ML SYRG IV PRN ×3 (18:48→22:34)
[2022-03-06] MEDS: LORazepam 2MG/ML-1ML VIAL IV PRN ×3 (18:48→22:34)
[2022-03-07] VITALS (22 sets, daily range): BP systolic 35–70; BP diastolic 18–39
[2022-03-07] MEDS: SULFAMETH-TRIMETH 80/16MG-ML 10 ML in D5W 5% 250 ML IV SCH (02:30)
[2022-03-07] MEDS: D5W/SOD CHL 0.45%/KCL 20MEQ 1,000 ML IV SCH (02:35)
[2022-03-07] MEDS ORDERED: FAMOTIDINE (10MG/ML) 2ML VL IV SCH (10:00)
== END 2022-03-07 09:39 | DRG 207 ==
LOC: EDBD 20:47 → ER 20:51 → TELE 12-21 03:54 → TELE-CENTR 12-21 20:08 → CATH ICU 12-27 06:43 → TELE-CENTR 01-09 01:12 → CENTRAL 01-09 21:46 → TELE-CENTR 01-26 21:21 → TELE-EAST 01-30 05:10 → EAST 02-06 10:59 → ICU WEST 03-05 00:08
PROVIDERS: ADMIT Nurse Practitioner; ATTEND Internal Medicine
PROC: 5A1955Z Respiratory Ventilation, Greater than 96 Consecutive Hours (ICD-10-PCS; 2021-12-27)
PROC: 0BH17EZ Insertion of Endotracheal Airway into Trachea, Via Natural or Artificial Opening (ICD-10-PCS; 2021-12-27)
PROC: 0DH63UZ Insertion of Feeding Device into Stomach, Percutaneous Approach (ICD-10-PCS; 2022-01-04)
PROC: 0D963ZZ Drainage of Stomach, Percutaneous Approach (ICD-10-PCS; 2022-01-04)
PROC: 05HA33Z Insertion of Infusion Device into Left Brachial Vein, Percutaneous Approach (ICD-10-PCS; principal; 2022-01-24)
PROC: B54NZZA Ultrasonography of Left Upper Extremity Veins, Guidance (ICD-10-PCS; 2022-01-24)
PROC: 05HF33Z Insertion of Infusion Device into Left Cephalic Vein, Percutaneous Approach (ICD-10-PCS; 2022-02-02)
PROC: B54NZZA Ultrasonography of Left Upper Extremity Veins, Guidance (ICD-10-PCS; 2022-02-02)
DX: U07.1 COVID-19 (principal); J69.0 Pneumonitis due to inhalation of food and vomit; J96.01 Acute respiratory failure with hypoxia; E43 Unspecified severe protein-calorie malnutrition; G92.9 Unspecified toxic encephalopathy; A41.89 Other specified sepsis; R65.21 Severe sepsis with septic shock; J12.82 Pneumonia due to coronavirus disease 2019; N17.0 Acute kidney failure with tubular necrosis; K94.23 Gastrostomy malfunction; B19.10 Unspecified viral hepatitis B without hepatic coma; G10 Huntington's disease; E87.1 Hypo-osmolality and hyponatremia; L03.311 Cellulitis of abdominal wall; Z99.11 Dependence on respirator [ventilator] status; Z68.1 Body mass index [BMI] 19.9 or less, adult; K94.22 Gastrostomy infection; E87.0 Hyperosmolality and hypernatremia; Z66 Do not resuscitate; G40.901 Epilepsy, unspecified, not intractable, with status epilepticus; F20.9 Schizophrenia, unspecified; F03.90 Unspecified dementia, unspecified severity, without behavioral disturbance, psychotic disturbance, mood disturbance, and anxiety; E03.9 Hypothyroidism, unspecified; R31.9 Hematuria, unspecified; R74.01 Elevation of levels of liver transaminase levels; J20.8 Acute bronchitis due to other specified organisms; R13.10 Dysphagia, unspecified; D72.819 Decreased white blood cell count, unspecified; L89.122 Pressure ulcer of left upper back, stage 2; B19.20 Unspecified viral hepatitis C without hepatic coma; D69.6 Thrombocytopenia, unspecified; G40.909 Epilepsy, unspecified, not intractable, without status epilepticus; I10 Essential (primary) hypertension; Z74.01 Bed confinement status
CPT/HCPCS: 36415; 36569; 36600; 43246; 70450; 71045; 71275; 74018; 76705; 80048; 80053; 80076; 81001; 82728; 82805; 82962; 83605; 83615; 83735; 83880; 84100; 84132; 84439; 84443; 84484; 85007; 85025; 85027; 85379; 85610; 85730; 86704; 86706; 86708; 86803; 87040; 87070; 87077; 87081; 87086; 87147; 87186; 87205; 87340; 87493; 87804; 92507; 92610; 93005; 94002; 94003; 94640; 95819; 96365; 96368; A4565; C9113; G0378; J0330; J0461; J0696; J1100; J1956; J2250; J2405; J2704; J3490; J7042; J7060; P9047